=== PATIENT | female | born 1940 | race Caucasian/White ===

== ENCOUNTER 2016-06-13 13:30 | Outpatient (RCR) | payer MEDICARE, OTHER ==
--- OUTSIDE RECORDS SUMMARY | 2016-06-13 13:33 | XMS REPORT | Continuity of Care Document ---
Author Author [facility] Organization [facility] Address Unknown Phone Unavailable Care Team Providers Care Executive Communications Manager Name Role Phone SHARAN ANDREW Augustine ALCALA PCP Insurance Providers Payer Name Policy Number Subscriber Name Relationship [employer] [id number] Zhanna Stuart 18 Self / Same As Patient GEHA [id number] Zhanna Stuart 20 Self / Same As Patient Problems No problem information available. Medications No medication information available. Social History Social History Problem Response Recorded Date/Time Recent Foreign Travel N [place] 12/18/2015 9:51am Hospital Discharge Instructions No hospital discharge instructions. Plan of Care Prescriptions See Medication Section Functional Status No functional status results. Allergies, Adverse Reactions, Alerts No known allergies. Immunizations No immunization records. Vital Signs No known vital signs results. Results Laboratory Results Test Name Result Units Flags Reference Collection Date/Time Result Date/ Time Comments White Blood Count 9.0 10^3/uL 4.3-11.0 01/22/2016 10:39am 01/22/2016 10 :43am Red Blood Count 5.03 10^6/uL 4.35-5.85 01/22/2016 10:39am 01/22/2016 10 :43am Hemoglobin 13.5 G/DL 11.5-16.0 01/22/2016 10:39am 01/22/2016 10:43am Hematocrit 38 % 35-52 01/22/2016 10:39am 01/22/2016 10:43am Mean Corpuscular Volume 76 FL L 80-99 01/22/2016 10:39am 01/22/2016 10: 43am Mean Corpuscular Hemoglobin 27 PG 25-34 01/22/2016 10:39am 01/22/2016 10:43am Mean Corpuscular Hemoglobin Concent 35 G/DL 32-36 01/22/2016 10:39am 10:43am Red Cell Distribution Width 16.9 % H 10.0-14.5 01/22/2016 10:39am 2015 10:43am Platelet Count 397 10^3/uL 130-400 01/22/2016 10:39am 01/22/2016 10: 43am Mean Platelet Volume 8.1 FL 7.4-10.4 01/22/2016 10:39am 01/22/2016 10: 43am Neutrophils (%) (Auto) 66 % 42-75 01/22/2016 10:39am 01/22/2016 10: 43am Lymphocytes (%) (Auto) 20 % 12-44 01/22/2016 10:39am 01/22/2016 10: 43am Monocytes (%) (Auto) 13 % H 0-12 01/22/2016 10:39am 01/22/2016 10:43am Eosinophils (%) (Auto) 1 % 0-10 01/22/2016 10:39am 01/22/2016 10:43am Basophils (%) (Auto) 0 % 0-10 01/22/2016 10:39am 01/22/2016 10:43am Neutrophils # (Auto) 5.9 X 10^3 1.8-7.8 01/22/2016 10:39am 01/22/2016 10:43am Lymphocytes # (Auto) 1.8 X 10^3 1.0-4.0 01/22/2016 10:39am 01/22/2016 10:43am Monocytes # (Auto) 1.2 X 10^3 H 0.0-1.0 01/22/2016 10:39am 01/22/2016 10: 43am Eosinophils # (Auto) 0.1 10^3/uL 0.0-0.3 01/22/2016 10:39am 01/22/2016 10:43am Basophils # (Auto) 0.0 10^3/uL 0.0-0.1 01/22/2016 10:39am 01/22/2016 10 :43am Ferritin 934 ng/mL H 15-150 01/22/2016 10:39am 01/23/2016 8:46am Test performed at [facility], CLIA# [id number] Procedures No known history of procedures. Encounters Encounter Location Arrival/Admit Date Discharge/Depart Date Attending Provider Discharged Recurring [facility] 01/22/16 10:30am 11:59pm MARYSE FORTE
[2016-06-13 13:45] LABS: BASOPHILS % (AUTO) 0 % (0-10); EOSINOPHILS # (AUTO) 0.1 10^3/uL (0.0-0.3); EOSINOPHILS % (AUTO) 1 % (0-10); LYMPHOCYTES # (AUTO) 2.2 X 10^3 (1.0-4.0); LYMPHOCYTES % (AUTO) 29 % (12-44); MEAN CORPUSCULAR HEMOGLOBIN 29 PG (25-34); MEAN CORPUSCULAR HGB CONC 35 G/DL (32-36); MEAN CORPUSCULAR VOLUME 82 FL (80-99); MEAN PLATELET VOLUME 8.8 FL (7.4-10.4); MONOCYTES # (AUTO) 1.1 X 10^3 (0.0-1.0); MONOCYTES % (AUTO) 14 % (0-12); NEUTROPHILS # (AUTO) 4.3 X 10^3 (1.8-7.8); NEUTROPHILS % (AUTO) 56 % (42-75); PLATELET COUNT 358 10^3/uL (130-400); RED BLOOD COUNT 4.77 10^6/uL (4.35-5.85); RED CELL DISTRIBUTION WIDTH 12.9 % (10.0-14.5); WHITE BLOOD COUNT 7.8 10^3/uL (4.3-11.0)
[2016-06-13 14:30] LABS: ALANINE AMINOTRANSFERASE 16 U/L (0-55); ALBUMIN 3.9 G/DL (3.2-4.5); ANION GAP 10 MMOL/L (5-14); ASPARTATE AMINO TRANSFERASE 25 U/L (5-34); BILIRUBIN,TOTAL 0.3 MG/DL (0.1-1.0); BLOOD UREA NITROGEN 7 MG/DL (7-18); BUN/CREATININE RATIO 11; CALCIUM 9.2 MG/DL (8.5-10.1); CARBON DIOXIDE 28 MMOL/L (21-32); CHLORIDE 98 MMOL/L (98-107); CREATININE SERUM 0.63 MG/DL (0.60-1.30); GFR ESTIMATED > 60; GLUCOSE 96 MG/DL (70-105); POTASSIUM 3.4 MMOL/L (3.6-5.0); SODIUM 136 MMOL/L (135-145); TOTAL PROTEIN 6.4 G/DL (6.4-8.2)
== END 2016-09-11 | disposition home or self-care (01) ==
LOC: ONC 13:30
PROVIDERS: ATTEND Internal Medicine Hematology & Oncology
DX: D50.0 Iron deficiency anemia secondary to blood loss (chronic) (principal); K50.90 Crohn's disease, unspecified, without complications; Z79.899 Other long term (current) drug therapy
CPT/HCPCS: 36415; 80053; 82728; 85025; 99213

== ENCOUNTER 2017-01-09 09:40 | Outpatient (RCR) | payer MEDICARE, OTHER ==
[2016-12-12 14:05] LABS: MEAN CORPUSCULAR HEMOGLOBIN 28 PG (25-34); MEAN CORPUSCULAR VOLUME 79 FL (80-99); RED BLOOD COUNT 4.89 10^6/uL (4.35-5.85); WHITE BLOOD COUNT 8.7 10^3/uL (4.3-11.0)
[2016-12-12 14:06] LABS: BASOPHILS % (AUTO) 1 % (0-10); EOSINOPHILS # (AUTO) 0.1 10^3/uL (0.0-0.3); EOSINOPHILS % (AUTO) 2 % (0-10); LYMPHOCYTES # (AUTO) 2.2 X 10^3 (1.0-4.0); LYMPHOCYTES % (AUTO) 26 % (12-44); MEAN CORPUSCULAR HGB CONC 35 G/DL (32-36); MEAN PLATELET VOLUME 8.6 FL (7.4-10.4); MONOCYTES # (AUTO) 1.1 X 10^3 (0.0-1.0); MONOCYTES % (AUTO) 13 % (0-12); NEUTROPHILS # (AUTO) 5.2 X 10^3 (1.8-7.8); NEUTROPHILS % (AUTO) 59 % (42-75); PLATELET COUNT 390 10^3/uL (130-400); RED CELL DISTRIBUTION WIDTH 12.9 % (10.0-14.5)
[2016-12-12 14:58] LABS: ALANINE AMINOTRANSFERASE 22 U/L (0-55); ALBUMIN 3.9 G/DL (3.2-4.5); ANION GAP 10 MMOL/L (5-14); ASPARTATE AMINO TRANSFERASE 30 U/L (5-34); BILIRUBIN,TOTAL 0.4 MG/DL (0.1-1.0); BLOOD UREA NITROGEN 6 MG/DL (7-18); BUN/CREATININE RATIO 10; CALCIUM 8.9 MG/DL (8.5-10.1); CARBON DIOXIDE 29 MMOL/L (21-32); CHLORIDE 92 MMOL/L (98-107); CREATININE SERUM 0.63 MG/DL (0.60-1.30); GFR ESTIMATED > 60; GLUCOSE 99 MG/DL (70-105); POTASSIUM 3.1 MMOL/L (3.6-5.0); SODIUM 131 MMOL/L (135-145); TOTAL PROTEIN 6.4 G/DL (6.4-8.2)
[2016-12-12 17:20] LABS: MAGNESIUM 2.1 MG/DL (1.8-2.4)
[2017-01-09 10:46] LABS: ANION GAP 7 MMOL/L (5-14); BLOOD UREA NITROGEN 8 MG/DL (7-18); BUN/CREATININE RATIO 13; CALCIUM 9.1 MG/DL (8.5-10.1); CARBON DIOXIDE 32 MMOL/L (21-32); CHLORIDE 94 MMOL/L (98-107); CREATININE SERUM 0.61 MG/DL (0.60-1.30); GFR ESTIMATED > 60; GLUCOSE 100 MG/DL (70-105); POTASSIUM 3.6 MMOL/L (3.6-5.0); SODIUM 133 MMOL/L (135-145)
== END 2017-03-12 | disposition home or self-care (01) ==
LOC: ONC 09:40
PROVIDERS: ATTEND Internal Medicine Hematology & Oncology
DX: D50.0 Iron deficiency anemia secondary to blood loss (chronic) (principal); K50.90 Crohn's disease, unspecified, without complications; Z79.899 Other long term (current) drug therapy
CPT/HCPCS: 36415; 80048; 80053; 82728; 83735; 85025; 99213

== ENCOUNTER 2017-07-01 10:17 | Outpatient (RCR) | payer MEDICARE, OTHER ==
[2017-06-10 10:25] LABS: BASOPHILS # (AUTO) 0.1 10^3/uL (0.0-0.1); BASOPHILS % (AUTO) 1 % (0-10); EOSINOPHILS # (AUTO) 0.1 10^3/uL (0.0-0.3); EOSINOPHILS % (AUTO) 2 % (0-10); HEMATOCRIT 44 % (35-52); LYMPHOCYTES # (AUTO) 2.3 X 10^3 (1.0-4.0); LYMPHOCYTES % (AUTO) 28 % (12-44); MEAN CORPUSCULAR HEMOGLOBIN 27 PG (25-34); MEAN CORPUSCULAR HGB CONC 34 G/DL (32-36); MEAN CORPUSCULAR VOLUME 78 FL (80-99); MEAN PLATELET VOLUME 8.9 FL (7.4-10.4); MONOCYTES # (AUTO) 0.9 X 10^3 (0.0-1.0); MONOCYTES % (AUTO) 12 % (0-12); NEUTROPHILS # (AUTO) 4.7 X 10^3 (1.8-7.8); NEUTROPHILS % (AUTO) 58 % (42-75); PLATELET COUNT 400 10^3/uL (130-400); RED BLOOD COUNT 5.63 10^6/uL (4.35-5.85); RED CELL DISTRIBUTION WIDTH 13.9 % (10.0-14.5); WHITE BLOOD COUNT 8.1 10^3/uL (4.3-11.0)
[2017-06-10 10:52] LABS: ALANINE AMINOTRANSFERASE 14 U/L (0-55); ALBUMIN 4.2 GM/DL (3.2-4.5); ALKALINE PHOSPHATASE 111 U/L (40-136); BILIRUBIN,TOTAL 0.6 MG/DL (0.1-1.0); BUN/CREATININE RATIO 9; CALCIUM 9.7 MG/DL (8.5-10.1); CARBON DIOXIDE 30 MMOL/L (21-32); CHLORIDE 98 MMOL/L (98-107); CREATININE SERUM 0.67 MG/DL (0.60-1.30); GFR ESTIMATED > 60; GLUCOSE 96 MG/DL (70-105); POTASSIUM 3.4 MMOL/L (3.6-5.0); SODIUM 139 MMOL/L (135-145); TOTAL PROTEIN 7.7 GM/DL (6.4-8.2)
[~2017-07-01 10:17] MED LIST: FERRIC CARBOXYMALTOSE (CANCER) 750 MG in NS (IVPB) CANCER CENTER 250 ML IV SCH
== END 2017-09-08 | disposition home or self-care (01) ==
LOC: ONC 10:17
PROVIDERS: ATTEND Internal Medicine Hematology & Oncology
DX: D50.9 Iron deficiency anemia, unspecified (principal)
CPT/HCPCS: 36415; 80053; 82728; 85025; 96365; 99213

== ENCOUNTER 2017-12-23 09:57 | Outpatient (RCR) | payer MEDICARE, OTHER ==
[2017-12-16 10:36] LABS: BASOPHILS % (AUTO) 0 % (0-10); EOSINOPHILS # (AUTO) 0.1 10^3/uL (0.0-0.3); EOSINOPHILS % (AUTO) 1 % (0-10); HEMATOCRIT 40 % (35-52); HEMOGLOBIN 14.5 G/DL (11.5-16.0); LYMPHOCYTES # (AUTO) 2.5 X 10^3 (1.0-4.0); LYMPHOCYTES % (AUTO) 27 % (12-44); MEAN CORPUSCULAR HEMOGLOBIN 30 PG (25-34); MEAN CORPUSCULAR HGB CONC 37 G/DL (32-36); MEAN CORPUSCULAR VOLUME 82 FL (80-99); MEAN PLATELET VOLUME 8.6 FL (7.4-10.4); MONOCYTES % (AUTO) 11 % (0-12); NEUTROPHILS # (AUTO) 5.6 X 10^3 (1.8-7.8); NEUTROPHILS % (AUTO) 61 % (42-75); PLATELET COUNT 398 10^3/uL (130-400); RED BLOOD COUNT 4.85 10^6/uL (4.35-5.85); RED CELL DISTRIBUTION WIDTH 13.2 % (10.0-14.5); WHITE BLOOD COUNT 9.3 10^3/uL (4.3-11.0)
[2017-12-16 10:49] LABS: ALANINE AMINOTRANSFERASE 13 U/L (0-55); ALKALINE PHOSPHATASE 100 U/L (40-136); BILIRUBIN,TOTAL 0.5 MG/DL (0.1-1.0); BUN/CREATININE RATIO 7; CALCIUM 9.1 MG/DL (8.5-10.1); CARBON DIOXIDE 28 MMOL/L (21-32); CHLORIDE 94 MMOL/L (98-107); CREATININE SERUM 0.68 MG/DL (0.60-1.30); GFR ESTIMATED > 60; GLUCOSE 107 MG/DL (70-105); POTASSIUM 3.2 MMOL/L (3.6-5.0); SODIUM 131 MMOL/L (135-145); TOTAL PROTEIN 6.7 GM/DL (6.4-8.2)
== END 2018-03-16 | disposition home or self-care (01) ==
LOC: ONC 09:57
PROVIDERS: ATTEND Internal Medicine Hematology & Oncology
DX: D50.0 Iron deficiency anemia secondary to blood loss (chronic) (principal); K50.90 Crohn's disease, unspecified, without complications; Z79.899 Other long term (current) drug therapy
CPT/HCPCS: 36415; 80053; 82728; 85025; 99213

== ENCOUNTER 2018-07-16 22:22 | Inpatient (IN) | payer MEDICARE, OTHER ==
[~2018-07-16] VITALS: Ht 157.5 cm; Wt 39.5 kg
--- OUTSIDE RECORDS SUMMARY | 2018-07-16 22:28 | XMS REPORT | Continuity of Care Document ---
Author Author [facility] Address Unknown Phone Unavailable Allergies Active Description Code Type Severity Reaction Onset Reported/Identified Relationship to Patient Clinical Status Yes SULFA (sulfonamide) [id number] CLASS N/A N/A Yes SULFA (SULFONAMIDE ANTIBIOTICS) UNKNOWN DERMATOLOGICAL - OBDULIO Yes No Known Drug Allergies [id number] Drug Allergy Unknown N/A 09/17/2010 Medications Medication Packaging Start Date Stop Date Route Dosage Sig MECLIZINE TAB 25 MG (ANTIVERT) MG 06/06/2018 06/06/2018 PRN ONCE NORMAL SALINE W/KCL 40MEQ IV (SALINE IV BAG [id number]) MLS 06/06/2018 06/13/2018 CONTINUOUSEVERY 0 Hour NORMAL SALINE 1000CC IV BAG INJ 0.9 % (NS 1000CC IV BAG) ml 06/06/2018 06/06/2018 ONCE&1446 ONDANSETRON VIAL INJ 4 MG/2CC (ZOFRAN 2CC VIAL) MG 06/06/2018 06/13/2018 PRN Q4H CEFTRIAXONE PREMIX IV BAG IV 1 GM/50CC (ROCEPHIN PREMIX IV BAG) GM 06/06/2018 06/13/2018 Daily&0900 POTASSIUM CL 40MEQ VIAL INJ 40 MEQ/20CC (KCL VIAL) MEQ 06/06/2018 06/06/2018 ONCE&1851 NORMAL SALINE 1000CC IV BAG INJ 0.9 % (NS 1000CC IV BAG) ml 06/06/2018 06/21/2018 CONTINUOUSEVERY 0 Hour Flu vacc [id number] Persons 6mo T older(PF) IM syringe/vial(Fluarix QUAD) Adult ML 06/06/2018 06/06/2018 ONCE&2008 PNEUMONIA VACCINE INJ (PREVNAR-13) ml 06/06/2018 06/06/2018 ONCE&2008 SERTRALINE TAB 50 MG (ZOLOFT) MG 06/12/2018 Daily&0900 Dronabinol (MARINOL) 2.5mg capsule MG 06/06/2018 06/16/2018 BID&0900,2100 ALPRAZOLAM TAB 0.25 MG (XANAX) MG 06/06/2018 06/16/2018 PRN Q8H POTASSIUM CL 40MEQ VIAL INJ 40 MEQ/20CC (KCL VIAL) MEQ 06/06/2018 06/06/2018 ONCE&2200 MECLIZINE TAB 25 MG (ANTIVERT) MG 06/06/2018 06/13/2018 PRN Q8H Normal SALINE 0.9 % (NS 100cc) (plain bag) ml 06/06/2018 06/06/2018 ONCE&2200 POTASSIUM CHLORIDE TAB 20 MEQ (K-DUR) MEQ 06/07/2018 06/07/2018 ONCE&0835 AMLODIPINE TAB 5 MG (NORVASC) MG 06/13/2018 Daily&0900 POTASSIUM CHLORIDE TAB 20 MEQ (K-DUR) MEQ 06/07/2018 06/13/2018 Daily&0900 PANTOPRAZOLE TAB 40 MG (PROTONIX) MG 06/07/2018 06/13/2018 Daily&0900 Diltiazem extended release 180mg cap (CARDIZEM) MG 06/07/2018 06/16/2018 Daily&0900 Dronabinol (MARINOL) 2.5mg capsule MG 06/07/2018 06/17/2018 AC&0221,1021,1821 Dronabinol (MARINOL) 2.5mg capsule MG 06/07/2018 06/17/2018 TID&0630,1130,1630 Dronabinol (MARINOL) 2.5mg capsule MG 06/07/2018 06/17/2018 TID&0630,1130,1630 POTASSIUM CHLORIDE TAB 20 MEQ (K-DUR) MEQ 06/08/2018 06/08/2018 ONCE&0734 NORMAL SALINE 250CC IV BAG INJ 0.9 % (NS 250CC IV BAG) ml 06/08/2018 06/08/2018 ONCE&0734 MAGNESIUM SULFATE VIAL INJ 5 GM/10CC (MAG SULFATE 10CC VIAL) GM 06/08/2018 06/08/2018 ONCE&0828 NORMAL SALINE 250CC IV BAG INJ 0.9 % (NS 250CC IV BAG) ml 06/08/2018 06/08/2018 ONCE&0845 AMLODIPINE TAB 5 MG (NORVASC) MG 06/14/2018 Daily&0900 SPIRONOLACTONE TAB 25 MG (ALDACTONE) MG 06/08/2018 06/14/2018 Daily&0900 NORMAL SALINE 250CC IV BAG INJ 0.9 % (NS 250CC IV BAG) ml 06/08/2018 06/08/2018 ONCE&1017 POTASSIUM CHLORIDE TAB 20 MEQ (K-DUR) MEQ 06/08/2018 06/08/2018 ONCE&1626 POTASSIUM CL 40MEQ VIAL INJ 40 MEQ/20CC (KCL VIAL) MEQ 06/08/2018 06/08/2018 ONCE&1626 NORMAL SALINE 250CC IV BAG INJ 0.9 % (NS 250CC IV BAG) ml 06/08/2018 06/08/2018 ONCE&1626 MAGNESIUM SULFATE VIAL INJ 1 GM/2CC (MAG SULFATE 2CC VIAL) GM 06/09/2018 06/09/2018 ONCE&0751 Normal SALINE 0.9 % (NS 100cc) (plain bag) ml 06/09/2018 06/09/2018 ONCE&0819 MAGNESIUM SULFATE VIAL INJ 5 GM/10CC (MAG SULFATE 10CC VIAL) GM 06/09/2018 06/09/2018 ONCE&0846 Problems Date Dx Coded Attending Type Code Diagnosis Diagnosed By 02/02/2015 MARYSE FORTE Ot 280.0 02/02/2015 MARYSE FORTE Ot V58.69 03/22/2015 NATHANAEL LOPEZ MICA SIZER Ot 280.9 03/22/2015 NATHANAEL LOPEZ MICA SIZER Ot 789.06 03/22/2015 NATHANAEL LOPEZ MICA SIZER Ot V58.69 03/23/2015 NATHANAEL LOPEZ MICA SIZER Ot 280.0 03/23/2015 NATHANAEL LOPEZ MICA SIZER Ot 309.0 03/23/2015 NATHANAEL LOPEZ MICA SIZER Ot 555.9 03/23/2015 NATHANAEL LOPEZ MICA SIZER Ot V58.69 03/28/2015 NATHANAEL LOPEZ MICA SIZER Ot 280.9 03/28/2015 NATHANAEL LOPEZ MICA SIZER Ot 789.06 03/28/2015 NATHANAEL LOPEZ MICA SIZER Ot V58.69 04/03/2015 NATHANAEL LOPEZ MICA SIZER Ot 280.0 04/03/2015 NATHANAEL LOPEZ MICA SIZER Ot 309.0 04/03/2015 LOPEZNATHANAEL Shea MICA SIZER Ot 555.9 04/03/2015 NATHANAEL LOPEZ S MICA SIZER Ot V58.69 04/11/2015 REANNA, BOBAN N Ot 280.0 04/11/2015 REANNA, BOBAN N Ot V58.69 04/13/2015 LOPEZNATHANAEL Shea S MICA SIZER Ot 280.9 04/13/2015 LOPEZNATHANAEL Shea S MICA SIZER Ot 789.06 04/13/2015 LOPEZNATHANAEL Shea S MICA SIZER Ot V58.69 04/18/2015 LOPEZNATHANAEL Shea S MICA SIZER Ot 280.0 04/18/2015 LOPEZNATHANAEL Shea S MICA SIZER Ot 309.0 04/18/2015 NATHANAEL LOPEZ S MICA SIZER Ot 555.9 04/18/2015 LOPEZNATHANAEL Shea S MICA SIZER Ot V58.69 04/24/2015 REANNA, BOBAN N Ot 280.0 04/24/2015 REANNA, BOBAN N Ot V58.69 04/25/2015 REANNA, BOBAN N Ot 280.0 04/25/2015 REANNA, BOBAN N Ot V58.69 04/26/2015 REANNA, BOBAN N Ot 280.0 04/26/2015 REANNA, BOBAN N Ot 280.9 04/26/2015 REANNA, BOBAN N Ot D50.0 04/26/2015 REANNA, BOBAN N Ot V58.69 06/06/2015 REANNA, BOBAN N Ot 280.0 06/06/2015 REANNA, BOBAN N Ot V58.69 07/21/2015 REANNA, BOBAN N Ot 280.0 07/21/2015 REANNA, BOBAN N Ot V58.69 08/09/2015 REANNA, BOBAN N Ot D50.0 08/09/2015 REANNA, BOBAN N Ot K50.90 08/22/2015 REANNA, BOBAN N Ot D50.0 08/22/2015 REANNA, BOBAN N Ot K50.90 09/10/2015 REANNA, BOBAN N Ot D50.0 09/10/2015 REANNA, BOBAN N Ot K50.90 12/19/2015 REANNA, BOBAN N Ot D50.0 IRON DEFICIENCY ANEMIA SECONDARY TO BLOO 12/19/2015 MARYSE FORTE N Ot K50.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, UNSPECIFIED, WITHOUT CO 12/21/2015 LOPEZNATHANAEL Shea MICA SIZER Ot D50.0 IRON DEFICIENCY ANEMIA SECONDARY TO BLOO 12/21/2015 NATHANAEL LOPEZ MICA SIZER Ot K50.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, UNSPECIFIED, WITHOUT CO 12/21/2015 NATHAANEL LOPEZ MICA SIZER Ot R53.83 OTHER FATIGUE 12/21/2015 NATHANAEL LOPEZ MICA SIZER Ot Z79.899 OTHER CARE HOME (CURRENT) DRUG THERAPY 01/09/2016 NATHANAEL LOPEZ MICA SIZER Ot D50.0 IRON DEFICIENCY ANEMIA SECONDARY TO BLOO 01/09/2016 NATHANAEL LOPEZ MICA SIZER Ot K50.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, UNSPECIFIED, WITHOUT CO 01/09/2016 NATHANAEL LOPEZ MICA SIZER Ot R53.83 OTHER FATIGUE 01/09/2016 NATHANAEL LOPEZ MICA SIZER Ot Z79.899 OTHER CARE HOME (CURRENT) DRUG THERAPY 01/12/2016 NATHANAEL LOPEZ MICA SIZER Ot D50.0 IRON DEFICIENCY ANEMIA SECONDARY TO BLOO 01/12/2016 NATHANAEL LOPEZ MICA SIZER Ot K50.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, UNSPECIFIED, WITHOUT CO 01/12/2016 NATHANAEL LOPEZ MICA SIZER Ot R53.83 OTHER FATIGUE 01/12/2016 NATHANAEL LOPEZ MICA SIZER Ot Z79.899 OTHER WIRELESS WATCHER (CURRENT) DRUG THERAPY 02/01/2016 REANNAMARYSE N Ot D50.0 IRON DEFICIENCY ANEMIA SECONDARY TO BLOO 02/01/2016 REANNAMARYSE N Ot K50.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, UNSPECIFIED, WITHOUT CO 02/01/2016 REANNAMARYSE N Ot Z79.899 OTHER WIRELESS WATCHER (CURRENT) DRUG THERAPY 02/09/2016 REANNAMARYSE N Ot D50.0 IRON DEFICIENCY ANEMIA SECONDARY TO BLOO 02/09/2016 REANNAMARYSE N Ot K50.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, UNSPECIFIED, WITHOUT CO 02/09/2016 REANNAMARYSE ROSARIO N Ot Z79.899 OTHER CARE HOME (CURRENT) DRUG THERAPY 03/17/2016 MARYSE FORTE N Ot D50.0 IRON DEFICIENCY ANEMIA SECONDARY TO BLOO 03/17/2016 REANNA, BOBAN N Ot K50.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, UNSPECIFIED, WITHOUT CO 03/17/2016 REANNA, BOBAN N Ot Z79.899 OTHER CARE HOME (CURRENT) DRUG THERAPY 07/26/2016 REANNA, BOBAN N Ot D50.0 IRON DEFICIENCY ANEMIA SECONDARY TO BLOO 07/26/2016 REANNA, BOBAN N Ot K50.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, UNSPECIFIED, WITHOUT CO 07/26/2016 REANNA, BOBAN N Ot Z79.899 OTHER CARE HOME (CURRENT) DRUG THERAPY 08/06/2016 REANNA, BOBAN N Ot D50.0 IRON DEFICIENCY ANEMIA SECONDARY TO BLOO 08/06/2016 REANNA, BOBAN N Ot K50.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, UNSPECIFIED, WITHOUT CO 08/06/2016 REANNA, BOBAN N Ot Z79.899 OTHER WIRELESS WATCHER (CURRENT) DRUG THERAPY 09/11/2016 REANNA, BOBAN N Ot D50.0 IRON DEFICIENCY ANEMIA SECONDARY TO BLOO 09/11/2016 REANNA, BOBAN N Ot K50.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, UNSPECIFIED, WITHOUT CO 09/11/2016 REANNA, BOBAN N Ot Z79.899 OTHER CARE HOME (CURRENT) DRUG THERAPY 09/12/2016 REANNA, BOBAN N Ot D50.0 IRON DEFICIENCY ANEMIA SECONDARY TO BLOO 09/12/2016 REANNA, BOBAN N Ot K50.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, UNSPECIFIED, WITHOUT CO 09/12/2016 REANNA, BOBAN N Ot Z79.899 OTHER CARE HOME (CURRENT) DRUG THERAPY 12/13/2016 REANNA, BOBAN N Ot D50.0 IRON DEFICIENCY ANEMIA SECONDARY TO BLOO 12/13/2016 REANNA, BOBAN N Ot K50.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, UNSPECIFIED, WITHOUT CO 12/13/2016 REANNA, BOBAN N Ot Z79.899 OTHER WIRELESS WATCHER (CURRENT) DRUG THERAPY 01/23/2017 REANNA, BOBAN N Ot D50.0 IRON DEFICIENCY ANEMIA SECONDARY TO BLOO 01/23/2017 REANNA, BOBAN N Ot K50.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, UNSPECIFIED, WITHOUT CO 01/23/2017 REANNA, BOBAN N Ot Z79.899 OTHER CARE HOME (CURRENT) DRUG THERAPY 03/12/2017 REANNA, BOBAN N Ot D50.0 IRON DEFICIENCY ANEMIA SECONDARY TO BLOO 03/12/2017 REANNA, BOBMONSERRAT N Ot K50.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, UNSPECIFIED, WITHOUT CO 03/12/2017 REANNA, BOBMONSERRAT N Ot Z79.899 OTHER CARE HOME (CURRENT) DRUG THERAPY 06/11/2017 REANNA, MARYSE N Ot D50.9 IRON DEFICIENCY ANEMIA, UNSPECIFIED 07/29/2017 REANNA, BOBMONSERRAT N Ot D50.9 IRON DEFICIENCY ANEMIA, UNSPECIFIED 08/07/2017 REANNA, BOBAN N Ot D50.9 IRON DEFICIENCY ANEMIA, UNSPECIFIED 09/08/2017 REANNA, BOBAN N Ot D50.9 IRON DEFICIENCY ANEMIA, UNSPECIFIED 09/09/2017 REANNA, BOBMONSERRAT N Ot D50.9 IRON DEFICIENCY ANEMIA, UNSPECIFIED 12/17/2017 REANNA, BOBMONSERRAT N Ot D50.9 IRON DEFICIENCY ANEMIA, UNSPECIFIED 01/16/2018 REANNA, BOBAN N Ot D50.0 IRON DEFICIENCY ANEMIA SECONDARY TO BLOO 01/16/2018 REANNA, BOBMONSERRAT N Ot K50.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, UNSPECIFIED, WITHOUT CO 01/16/2018 REANNA, MARYSE N Ot Z79.899 OTHER CARE HOME (CURRENT) DRUG THERAPY 01/30/2018 REANNA, MARYSE N Ot D50.0 IRON DEFICIENCY ANEMIA SECONDARY TO BLOO 01/30/2018 REANNA, BOBAN N Ot K50.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, UNSPECIFIED, WITHOUT CO 01/30/2018 REANNA, BOBMONSERRAT N Ot Z79.899 OTHER WIRELESS WATCHER (CURRENT) DRUG THERAPY 06/06/2018 Calabrese, Anabel-Sheri W 276.1 HYPOSMOLALITY AND/OR HYPONATREMIA 06/06/2018 Calabrese, Anabel-Sheri W 276.8 HYPOPOTASSEMIA 06/06/2018 Calabrese, Anabel-Sheri W E87.1 HYPO-OSMOLALITY AND HYPONATREMIA 06/06/2018 Calabrese, Anabel-Sheri W E87.6 HYPOKALEMIA 06/06/2018 Calabrese, Anabel-Sheri W 276.1 HYPOSMOLALITY AND/OR HYPONATREMIA 06/06/2018 Calabrese, Anabel-Sheri W 276.8 HYPOPOTASSEMIA 06/06/2018 Calabrese, Anabel-Sheri W 599.0 URINARY TRACT INFECTION, SITE NOT SPECIFIED 06/06/2018 Calabrese, Anabel-Sheri W E87.1 HYPO-OSMOLALITY AND HYPONATREMIA 06/06/2018 Calabrese, Anabel-Sheri W E87.6 HYPOKALEMIA 06/06/2018 Calabrese, Anabel-Sheri W N39.0 URINARY TRACT INFECTION, SITE NOT SPECIFIED 06/06/2018 Calabrese, Anabel-Sheri W 276.1 HYPOSMOLALITY AND/OR HYPONATREMIA 06/06/2018 Calabrese, Anabel-Sheri W 276.8 HYPOPOTASSEMIA 06/06/2018 Calabrese, Anabel-Sheri W 386.2 VERTIGO OF CENTRAL ORIGIN 06/06/2018 Calabrese, Anabel-Sheri W 599.0 URINARY TRACT INFECTION, SITE NOT SPECIFIED 06/06/2018 Calabrese, Anabel-Sheri W E87.1 HYPO-OSMOLALITY AND HYPONATREMIA 06/06/2018 Calabrese, Anabel-Sheri W E87.6 HYPOKALEMIA 06/06/2018 Calabrese, Anabel-Sheri W H81.49 VERTIGO OF CENTRAL ORIGIN, UNSPECIFIED EAR 06/06/2018 Calabrese, Anabel-Sheri W N39.0 URINARY TRACT INFECTION, SITE NOT SPECIFIED 06/06/2018 Calabrese, Anabel-Sheri W 276.1 HYPOSMOLALITY AND/OR HYPONATREMIA 06/06/2018 Calabrese, Anabel-Sheri W 276.8 HYPOPOTASSEMIA 06/06/2018 Calabrese, Anabel-Sheri W 386.2 VERTIGO OF CENTRAL ORIGIN 06/06/2018 Calabrese, Anabel-Sheri W 555.9 REGIONAL ENTERITIS OF UNSPECIFIED SITE 06/06/2018 Calabrese, Anabel-Sheri W 599.0 URINARY TRACT INFECTION, SITE NOT SPECIFIED 06/06/2018 Calabrese, Anabel-Sheri W E87.1 HYPO-OSMOLALITY AND HYPONATREMIA 06/06/2018 Calabrese, Anabel-Sheri W E87.6 HYPOKALEMIA 06/06/2018 Calabrese, Anabel-Sheri W H81.49 VERTIGO OF CENTRAL ORIGIN, UNSPECIFIED EAR 06/06/2018 Calabrese, Anabel-Sheri W K50.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, UNSPECIFIED, WITHOUT COMPLICATIONS 06/06/2018 Calabrese, Anabel-Sheri W N39.0 URINARY TRACT INFECTION, SITE NOT SPECIFIED 06/06/2018 Calabrese, Anabel-Sheri W 276.1 HYPOSMOLALITY AND/OR HYPONATREMIA 06/06/2018 Calabrese, Anabel-Sheri W 276.8 HYPOPOTASSEMIA 06/06/2018 Calabrese, Anabel-Sheri W 386.2 VERTIGO OF CENTRAL ORIGIN 06/06/2018 Calabrese, Anabel-Sheri W 555.9 REGIONAL ENTERITIS OF UNSPECIFIED SITE 06/06/2018 Calabrese, Anabel-Sheri W 599.0 URINARY TRACT INFECTION, SITE NOT SPECIFIED 06/06/2018 Calabrese, Anabel-Sheri W E87.1 HYPO-OSMOLALITY AND HYPONATREMIA 06/06/2018 Calabrese, Anabel-Sheri W E87.6 HYPOKALEMIA 06/06/2018 Calabrese, Anabel-Sheri W H81.49 VERTIGO OF CENTRAL ORIGIN, UNSPECIFIED EAR 06/06/2018 Calabrese, Anabel-Sheri W K50.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, UNSPECIFIED, WITHOUT COMPLICATIONS 06/06/2018 Calabrese, Anabel-Sheri W N39.0 URINARY TRACT INFECTION, SITE NOT SPECIFIED 06/07/2018 Calabrese, Anabel-Sheri W 276.1 HYPOSMOLALITY AND/OR HYPONATREMIA 06/07/2018 Calabrese, Anabel-Sheri W 276.8 HYPOPOTASSEMIA 06/07/2018 Calabrese, Anabel-Sheri W 386.2 VERTIGO OF CENTRAL ORIGIN 06/07/2018 Calabrese, Anabel-Sheri W 555.9 REGIONAL ENTERITIS OF UNSPECIFIED SITE 06/07/2018 Calabrese, Anabel-Sheri W 599.0 URINARY TRACT INFECTION, SITE NOT SPECIFIED 06/07/2018 Calabrese, Anabel-Sheri W E87.1 HYPO-OSMOLALITY AND HYPONATREMIA 06/07/2018 Calabrese, Anabel-Sheri W E87.6 HYPOKALEMIA 06/07/2018 Calabrese, Anabel-Sheri W H81.49 VERTIGO OF CENTRAL ORIGIN, UNSPECIFIED EAR 06/07/2018 Calabrese, Anabel-Sheri W K50.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, UNSPECIFIED, WITHOUT COMPLICATIONS 06/07/2018 Calabrese, Anabel-Sheri W N39.0 URINARY TRACT INFECTION, SITE NOT SPECIFIED 06/07/2018 Calabrese, Anabel-Sheri W 276.1 HYPOSMOLALITY AND/OR HYPONATREMIA 06/07/2018 Calabrese, Anabel-Sheri W 276.8 HYPOPOTASSEMIA 06/07/2018 Calabrese, Anabel-Sheri W 386.2 VERTIGO OF CENTRAL ORIGIN 06/07/2018 Calabrese, Anabel-Sheri W 555.9 REGIONAL ENTERITIS OF UNSPECIFIED SITE 06/07/2018 Calabrese, Anabel-Sheri W 599.0 URINARY TRACT INFECTION, SITE NOT SPECIFIED 06/07/2018 Calabrese, Anabel-Sheri W E87.1 HYPO-OSMOLALITY AND HYPONATREMIA 06/07/2018 Calabrese, Anabel-Sheri W E87.6 HYPOKALEMIA 06/07/2018 Calabrese, Anabel-Sheri W H81.49 VERTIGO OF CENTRAL ORIGIN, UNSPECIFIED EAR 06/07/2018 Calabrese, Anabel-Sheri W K50.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, UNSPECIFIED, WITHOUT COMPLICATIONS 06/07/2018 Calabrese, Anabel-Sheri W N39.0 URINARY TRACT INFECTION, SITE NOT SPECIFIED 06/07/2018 Calabrese, Anabel-Sheri W 276.1 HYPOSMOLALITY AND/OR HYPONATREMIA 06/07/2018 Calabrese, Anabel-Sheri W 276.8 HYPOPOTASSEMIA 06/07/2018 Calabrese, Anabel-Sheri W 386.11 06/07/2018 Calabrese, Anabel-Sheri W 386.2 VERTIGO OF CENTRAL ORIGIN 06/07/2018 Calabrese, Anabel-Sheri W 555.9 06/07/2018 Calabrese, Anabel-Sheri W 599.0 URINARY TRACT INFECTION, SITE NOT SPECIFIED 06/07/2018 Calabrese, Anabel-Sheri W E87.1 HYPO-OSMOLALITY AND HYPONATREMIA 06/07/2018 Calabrese, Anabel-Sheri W E87.6 HYPOKALEMIA 06/07/2018 Calabrese, Anabel-Sheri W H81.11 BENIGN PAROXYSMAL VERTIGO, RIGHT EAR 06/07/2018 Calabrese, Anabel-Sheri W H81.49 VERTIGO OF CENTRAL ORIGIN, UNSPECIFIED EAR 06/07/2018 Calabrese, Anabel-Sheri W K50.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, UNSPECIFIED, WITHOUT COMPLICATIONS 06/07/2018 Calabrese, Anabel-Sheri W N39.0 URINARY TRACT INFECTION, SITE NOT SPECIFIED 06/07/2018 Calabrese, Anabel-Sheri W 276.1 HYPOSMOLALITY AND/OR HYPONATREMIA 06/07/2018 Calabrese, Anabel-Sheri W 276.8 HYPOPOTASSEMIA 06/07/2018 Calabrese, Anabel-Sheri W 386.11 06/07/2018 Calabrese, Anabel-Sheri W 386.2 VERTIGO OF CENTRAL ORIGIN 06/07/2018 Calabrese, Anabel-Sheri W 555.9 06/07/2018 Calabrese, Anabel-Sheri W 599.0 URINARY TRACT INFECTION, SITE NOT SPECIFIED 06/07/2018 Calabrese, Anabel-Sheri W E87.1 HYPO-OSMOLALITY AND HYPONATREMIA 06/07/2018 Calabrese, Anabel-Sheri W E87.6 HYPOKALEMIA 06/07/2018 Calabrese, Anabel-Sheri W H81.11 BENIGN PAROXYSMAL VERTIGO, RIGHT EAR 06/07/2018 Calabrese, Anabel-Sheri W H81.49 VERTIGO OF CENTRAL ORIGIN, UNSPECIFIED EAR 06/07/2018 Calabrese, Anabel-Sheri W K50.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, UNSPECIFIED, WITHOUT COMPLICATIONS 06/07/2018 Calabrese, Anabel-Sheri W N39.0 URINARY TRACT INFECTION, SITE NOT SPECIFIED 06/07/2018 Calabrese, Anabel-Sheri W 276.1 HYPOSMOLALITY AND/OR HYPONATREMIA 06/07/2018 Calabrese, Anabel-Sheri W 276.8 HYPOPOTASSEMIA 06/07/2018 Calabrese, Anabel-Sheri W 386.11 06/07/2018 Calabrese, Anabel-Sheri W 386.2 VERTIGO OF CENTRAL ORIGIN 06/07/2018 Calabrese, Anabel-Sheri W 555.9 06/07/2018 Calabrese, Anabel-Sheri W 599.0 URINARY TRACT INFECTION, SITE NOT SPECIFIED 06/07/2018 Calabrese, Anabel-Sheri W E87.1 HYPO-OSMOLALITY AND HYPONATREMIA 06/07/2018 Calabrese, Anabel-Sheri W E87.6 HYPOKALEMIA 06/07/2018 Calabrese, Anabel-Sheri W H81.11 BENIGN PAROXYSMAL VERTIGO, RIGHT EAR 06/07/2018 Calabrese, Anabel-Sheri W H81.49 VERTIGO OF CENTRAL ORIGIN, UNSPECIFIED EAR 06/07/2018 Calabrese, Anabel-Sheri W K50.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, UNSPECIFIED, WITHOUT COMPLICATIONS 06/07/2018 Calabrese, Anabel-Sheri W N39.0 URINARY TRACT INFECTION, SITE NOT SPECIFIED 06/08/2018 Calabrese, Anabel-Sheri W 275.2 06/08/2018 Calabrese, Anabel-Sheri W 276.1 HYPOSMOLALITY AND/OR HYPONATREMIA 06/08/2018 Calabrese, Anabel-Sheri W 276.8 HYPOPOTASSEMIA 06/08/2018 Calabrese, Anabel-Sheri W 386.11 06/08/2018 Calabrese, Anabel-Sheri W 386.2 06/08/2018 Calabrese, Anabel-Sheri W 555.9 06/08/2018 Calabrese, Anabel-Sheri W 599.0 URINARY TRACT INFECTION, SITE NOT SPECIFIED 06/08/2018 Calabrese, Anabel-Sheri W E83.42 HYPOMAGNESEMIA 06/08/2018 Calabrese, Anabel-Sheri W E87.1 HYPO-OSMOLALITY AND HYPONATREMIA 06/08/2018, Anabel-Sheri W E87.6 HYPOKALEMIA 06/08/2018 Calabrese, Anabel-Sheri W H81.11 BENIGN PAROXYSMAL VERTIGO, RIGHT EAR 06/08/2018, Anabel-Sheri W H81.49 VERTIGO OF CENTRAL ORIGIN, UNSPECIFIED EAR 06/08/2018 Calabrese, Anabel-Sheri W K50.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, UNSPECIFIED, WITHOUT COMPLICATIONS 06/08/2018 Calabrese, Anabel-Sheri W N39.0 URINARY TRACT INFECTION, SITE NOT SPECIFIED 06/09/2018 Calabrese, Anabel-Sheri W 275.2 06/09/2018 Calabrese, Anabel-Sheri W 276.1 HYPOSMOLALITY AND/OR HYPONATREMIA 06/09/2018 Calabrese, Anabel-Sheri W 276.8 HYPOPOTASSEMIA 06/09/2018 Calabrese, Anabel-Sheri W 386.11 06/09/2018 Calabrese, Anabel-Sheri W 386.2 06/09/2018 Calabrese, Anabel-Sheri W 555.9 06/09/2018 Calabrese, Anabel-Sheri W 599.0 URINARY TRACT INFECTION, SITE NOT SPECIFIED 06/09/2018 Calabrese, Anabel-Sheri W E83.42 HYPOMAGNESEMIA 06/09/2018 Calabrese, Anabel-Sheri W E87.1 HYPO-OSMOLALITY AND HYPONATREMIA 06/09/2018 Calabrese, Anabel-Sheri W E87.6 HYPOKALEMIA 06/09/2018 Radhika Calabrese H81.11 BENIGN PAROXYSMAL VERTIGO, RIGHT EAR 06/09/2018 Radhika Calabrese H81.49 VERTIGO OF CENTRAL ORIGIN, UNSPECIFIED EAR 06/09/2018 Radhika Calabrese K50.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, UNSPECIFIED, WITHOUT COMPLICATIONS 06/09/2018 Radhika Calabrese N39.0 URINARY TRACT INFECTION, SITE NOT SPECIFIED Procedures There is no data. Results Test Result Range PTT - 06/06/18 13:09 PTT 28.9 Sec 26.0-38.0 Ferritin - 06/06/18 13:09 Ferritin 314.52 ng/mL 4.63-204.00 Urinalysis - 06/06/18 14:14 Icotest N/A Negative Urine Volume Urine Volume Sufficient (10mL) Urine Yeast No Yeast present Urine-Appearance Slightly Cloudy Clear Urine-Bacteria 4+ Urine-Bilirubin Negative Negative Urine-Blood 1+ Negative Urine-Color Yellow Colorless-Lt. Yellow Urine-Epithelial Cells RARE Urine-Glucose Negative Negative Urine-Ketones 2+ Negative Urine-Leukocytes Negative Negative Urine-Nitrite Positive Negative Urine-Other Culture to follow Urine-pH 7.0 5-8.5 Urine-Protein Negative Negative Urine-RBC Rare/HPF Urine-Specific [place] 1.015 1.000-1.030 Urine-WBC 5-10/HPF Urobilinogen 0.2 E.U./dL 0.2-1.0 Urine Culture - 06/06/18 14:14 PRELIM CULTURE RESULTS >100,000 Gram Negative ISAK / ID to Follow CULTURE SOURCE URINE CULTURE Sensi - 06/06/18 14:14 FINAL CULTURE RESULTS Escherichia coli (Isolate 1) Ampicillin/Sulbactam <=8/4 Ampicillin <=8 Amoxicillin/K Clavulanate <=8/4 Ceftriaxone <=8 Ciprofloxacin <=1 Nitrofurantoin <=32 Gentamicin <=4 Levofloxacin <=2 Trimethoprim/ Sulfamethoxazole <=2/38 Tetracycline <=4 Amikacin <=16 Aztreonam <=8 Ceftazidime <=1 Ceftazidime/K Clavulanate <=0.25 Cephalothin <=8 Cefotaxime <=2 Cefotaxime/K Clavulanate <=0.5 Cefoxitin <=8 Cefazolin <=8 Cefepime <=8 Cefuroxime <=4 Ertapenem <=1 Imipenem <=4 Meropenem <=4 Piperacillin/Tazobactam <=16 Piperacillin <=16 Tigecycline <=2 Tobramycin <=4 Magnesium - 06/07/18 05:05 Mg++ 1.8 mg/dL 1.6-2.6 Renin Activity and Aldosterone - 06/08/18 05:01 Renin Activity, Plasma 0.525 ng/mL/hr 0.167-5.380 Aldosterone 1.3 ng/dL 0.0-30.0 Magnesium - 06/08/18 05:01 Mg++ 1.4 mg/dL 1.6-2.6 BMP - 06/08/18 14:53 Anion Gap 11 6-14 BUN 2 mg/dL 5-25 Calcium 8.3 mg/dL 8.3-10.4 Chloride 98 mmol/L 95-114 CO2 24 mEq/L 22-33 Creat 0.51 mg/dL 0.50-1.50 eGFR 117 mL/min/1.73m2 >59 Glucose 104 mg/dL 70-110 Osmo 266 280-295 Potassium 2.9 mmol/L 3.5-5.3 Sodium 130 mmol/L 134-148 Magnesium - 06/09/18 05:20 Mg++ 1.5 mg/dL 1.6-2.6 Magnesium - 06/12/18 08:57 Mg++ 1.6 mg/dL 1.6-2.6 Comprehensive Metabolic Panel - 06/23/18 09:28 Albumin 4.0 g/dL 3.6-5.1 ALP 100 U/L 35-130 ALT 25 U/L 6-45 Anion Gap 17 6-14 AST 44 U/L 2-40 BUN 13 mg/dL 5-25 Calcium 10.2 mg/dL 8.3-10.4 Chloride 81 mmol/L 95-114 CO2 23 mEq/L 22-33 Creat 0.88 mg/dL 0.50-1.50 eGFR 62 mL/min/1.73m2 >59 Globulin 3.2 g/dL 2.3-3.5 Glucose 115 mg/dL 70-110 Osmo 244 280-295 Potassium 4.3 mmol/L 3.5-5.3 Sodium 117 Result Verified by Repeat Analysis mmol/L 134- 148 TBil 0.7 mg/dL 0.2-1.2 TP 7.2 g/dL 6.0-8.3 Encounters ACCT No. Visit Date/Time Discharge Status Pt. Type Provider Facility Loc./Unit Complaint [id number] 06/16/2018 14:45:12 06/16/2018 23:59:59 CLS Outpatient Robin Poon V [id number] 06/11/2018 15:25:00 Document Registration [id number] 06/29/2018 10:53:38 Document Registration [id number] 06/29/2018 10:49:36 Document Registration [id number] 12/23/2017 09:57:00 12/23/2017 23:59:59 CLS Outpatient MARYSE FORTE [facility] ONC [id number] 07/01/2017 10:17:00 09/08/2017 00:01:00 DIS Outpatient MARYSE FORTE [facility] ONC [id number] 01/09/2017 09:40:00 03/12/2017 00:01:00 DIS Outpatient MARYSE FORTE [facility] ONC [id number] 06/13/2016 13:30:00 09/11/2016 00:01:00 DIS Outpatient MARYSE FORTE [facility] ONC [id number] 01/22/2016 10:30:00 03/17/2016 00:01:00 DIS Outpatient MARYSE FORTE [facility] ONC [id number] 12/12/2015 14:34:00 12/12/2015 23:59:59 CLS Outpatient NATHANAEL LOPEZ [facility] ONC [id number] 06/12/2015 14:38:00 06/12/2015 23:59:59 CLS Outpatient MARYSE FORTE [facility] ONC [id number] 02/02/2015 09:27:00 04/26/2015 00:01:00 DIS Outpatient MARYSE FORTE [facility] ONC [id number] 03/10/2015 09:52:00 03/10/2015 23:59:59 CLS Outpatient NATHANAEL LOPEZ [facility] ONC [id number] 01/26/2015 09:21:00 01/26/2015 23:59:59 CLS Outpatient YESSY LOPEZINGE Shabbir POMPA [facility] ONC [id number] 01/21/2013 14:34:00 01/21/2013 23:59:59 CLS Outpatient [id number] 07/16/2018 22:23:00 ACT Emergency KAE PETE MD [facility] ER DEHYDRATED,LETHARGIC [id number] 06/23/2018 09:23:00 06/23/2018 23:59:00 DIS Outpatient Robin Poon [id number] 06/12/2018 08:55:00 06/12/2018 23:59:00 DIS Outpatient Radhika Calabrese [id number] 06/06/2018 15:06:00 06/09/2018 12:10:00 DIS Inpatient Radhika Calabrese [facility] MED-SURG [id number] 06/06/2018 14:12:49 Document Registration
[2018-07-16] MEDS ORDERED: NS IV 1000 ML 1,000 ML IV SCH (22:34)
--- NOTE | 2018-07-16 22:41 | ED General ---
General Chief Complaint: Unresponsive Stated Complaint: DEHYDRATED,LETHARGIC Nursing Triage Note: patient carried in for lethargy and dehydration. Nursing Sepsis Screen: No Definite Risk Source of Information: Patient, Family Exam Limitations: Other (clinical condition) History of Present Illness Date Seen by Provider: Jul 16, 2018 Time Seen by Provider: 22:25 Initial Comments patient presents to ER by private conveyance in the back of her car laying down complaining of nausea. She says she's been nauseated vomiting and diarrhea for the past several weeks. Twice in the last months she's been to the ER once to [place] where she was given fluids and workup and encouraged to go into behavioral health to help her with her chronic depression decreased appetite. She has a history of Crohn's disease. She was seen at [facility] and they started a workup saw nodule on her chest but then she went home AGAINST MEDICAL ADVICE before the complete her workup. Today the family brings her in because she continues to get weaker sicker and they say that her decline started about 4 years ago after her son committed suicide. Other than her history of Crohn's disease and iron deficiency anemia for which she is followed by Dr. Rhodes she has high blood pressure. She is followed by Dr. TSANG in [place]. She's not been taking her medications routinely nor any fluids for the past couple days. Return she does take fluids she vomits them back up immediately. She has been refusing any medical workup until she got so sick and weak her daughters drug her to the ER. The recalls that on her visit to the ER in [place] a nodules noted in one of her lung bases and it was recommended she follow up outpatient for a CT scan when she was feeling better. She has not made follow-up plans for this yet. Allergies and Home Medications Allergies Coded Allergies: No Known Drug Allergies (Unverified , 09/17/10) Patient Home Medication List Home Medication List Reviewed: Yes Review of Systems Review of Systems Constitutional: No chills, No diaphoresis; dizziness, malaise, weakness EENTM: No ear discharge, No ear pain Respiratory: No cough, No short of breath Cardiovascular: No chest pain, No Hx of Intervention, No palpitations, No vascular heart diseas Gastrointestinal: abdominal pain (diffuse tenderness); No constipation; diarrhea; No heartburn; nausea, vomiting Genitourinary: No discharge, No dysuria Musculoskeletal: No back pain, No joint pain Skin: No pruritus, No rash Past Bpjnrch-Stuoeu-Euxbdz Hx Patient Social History Alcohol Use: Denies Use Recreational Drug Use: No Smoking Status: Never a Smoker 2nd Hand Smoke Exposure: No Recent Foreign Travel: No Contact w/Someone Who Travel: No Recent Infectious Disease Expo: No Recent Hopitalizations: No Seasonal Allergies Seasonal Allergies: No Past Medical History Surgeries: Yes Appendectomy Respiratory: No Cardiac: Yes Hypertension Neurological: No Genitourinary: No Gastrointestinal: Yes Crohns Disease Musculoskeletal: No Endocrine: No HEENT: No Cancer: No Psychosocial: No Integumentary: No Blood Disorders: Yes Physical Exam-Suspected Sepsis Physical Exam Vital Signs Vital Signs - First Documented 07/16/18 07/17/18 22:23 00:00 Pulse 100 Resp 18 B/P (MAP) 124/87 (99) Pulse Ox 98 O2 Delivery Room Air Capillary Refill : Less Than 3 Seconds Blood Pressure Mean: 99 Height, Weight, BMI Height: 5'2.00" Weight: 75lbs. 0oz. [id number]; BMI Method:Stated General Appearance: Chronically ill, Cachetic, Moderate Distress Eyes: Bilateral Eye Normal Inspection, Bilateral Eye PERRL, Bilateral Eye EOMI HEENT: PERRL/EOMI, TMs Normal; No Moist Mucous Membranes Neck: Full Range of Motion, Normal Inspection, Non Tender Respiratory: Chest Non Tender, Lungs Clear, Normal Breath Sounds, No Accessory Muscle Use, No Respiratory Distress Cardiovascular: Regular Rate, Rhythm, No Edema, Normal Peripheral Pulses Gastrointestinal: Normal Bowel Sounds, Soft; No Guarding; Tenderness (mild, diffuse) Extremity: Normal Capillary Refill, Non Tender, No Calf Tenderness, No Pedal Edema Neurologic/Psychiatric: Alert, Oriented x3, No Motor/Sensory Deficits, Normal Mood/Affect, global project manager II-XII Norm as Tested, Other Skin: normal color, warm/dry, other (dry scaling skin) Lymphatic: No Adenopathy Focused Exam Lactate Level 07/16/18 22:45: Lactic Acid Level 2.92*H 07/17/18 00:50: Lactic Acid Level 2.25*H Lactic Acid Level Laboratory Tests Test 07/16/18 22:45 07/17/18 00:50 Lactic Acid Level 2.92 MMOL/L (0.50-2.00) *H 2.25 MMOL/L (0.50-2.00) *H Progress/Results/Core Measures Suspected Sepsis Recent Fever Within 48 Hours: No Infection Criteria Present: None New/Unexplained Altered Menta: Yes Sepsis Screen: No Definite Risk SIRS Temperature: Pulse: 100 Respiratory Rate: 18 Laboratory Tests 07/16/18 22:30: White Blood Count 11.3H Blood Pressure 124 /87 Mean: 99 07/16/18 22:45: Lactic Acid Level 2.92*H 07/17/18 00:50: Lactic Acid Level 2.25*H Laboratory Tests 07/16/18 22:30: Creatinine 0.89, INR Comment 1.4, Platelet Count 506H, Total Bilirubin 1.1H Results/Orders Lab Results Laboratory Tests Test 07/16/18 22:30 07/16/18 22:31 07/16/18 22:45 07/17/18 00:50 Range/Units White Blood Count 11.3 H 4.3-11.0 10^3/uL Red Blood Count 6.13 H 4.35-5.85 10^6/uL Hemoglobin 16.9 H 11.5-16.0 G/DL Hematocrit 47 35-52 % Mean Corpuscular Volume 77 L 80-99 FL Mean Corpuscular Hemoglobin 28 25-34 PG Mean Corpuscular Hemoglobin Concent 36 32-36 G/DL Red Cell Distribution Width 14.4 10.0-14.5 % Platelet Count 506 H 130-400 10^3/uL Mean Platelet Volume 8.4 7.4-10.4 FL Neutrophils (%) (Auto) 84 H 42-75 % Lymphocytes (%) (Auto) 9 L 12-44 % Monocytes (%) (Auto) 7 0-12 % Eosinophils (%) (Auto) 0 0-10 % Basophils (%) (Auto) 0 0-10 % Neutrophils # (Auto) 9.5 H 1.8-7.8 X 10^3 Lymphocytes # (Auto) 1.0 1.0-4.0 X 10^3 Monocytes # (Auto) 0.8 0.0-1.0 X 10^3 Eosinophils # (Auto) 0.0 0.0-0.3 10^3/uL Basophils # (Auto) 0.0 0.0-0.1 10^3/uL Prothrombin Time 16.7 H 12.2-14.7 SEC INR Comment 1.4 0.8-1.4 Activated Partial Thromboplast Time 36 H 24-35 SEC Sodium Level 125 *L 135-145 MMOL/L Potassium Level 3.3 L 3.6-5.0 MMOL/L Chloride Level 87 L 98-107 MMOL/L Carbon Dioxide Level 20 L 21-32 MMOL/L Anion Gap 18 H 5-14 MMOL/L Blood Urea Nitrogen 22 H 7-18 MG/DL Creatinine 0.89 0.60-1.30 MG/DL Estimat Glomerular Filtration Rate > 60 BUN/Creatinine Ratio 25 Glucose Level 117 H 70-105 MG/DL Calcium Level 10.5 H 8.5-10.1 MG/DL Corrected Calcium 10.3 H 8.5-10.1 MG/DL Total Bilirubin 1.1 H 0.1-1.0 MG/DL Aspartate Amino Transf (AST/SGOT) 34 5-34 U/L Alanine Aminotransferase (ALT/SGPT) 20 0-55 U/L Alkaline Phosphatase 128 40-136 U/L Troponin I < 0.30 <0.30 NG/ML Total Protein 7.9 6.4-8.2 GM/DL Albumin 4.3 3.2-4.5 GM/DL Glucometer 130 H 70-110 MG/DL Lactic Acid Level 2.92 *H 2.25 *H 0.50-2.00 MMOL/L Test 07/17/18 01:27 Range/Units Urine Color YELLOW Urine Clarity SLIGHTLY CLOUDY Urine pH 7 5-9 Urine Specific [place] 1.015 L 1.016-1.022 Urine Protein 2+ H NEGATIVE Urine Glucose (UA) NEGATIVE NEGATIVE Urine Ketones 2+ H NEGATIVE Urine Nitrite POSITIVE H NEGATIVE Urine Bilirubin NEGATIVE NEGATIVE Urine Urobilinogen NORMAL NORMAL MG/DL Urine Leukocyte Esterase 2+ H NEGATIVE Urine RBC (Auto) 3+ H NEGATIVE Urine RBC NONE /HPF Urine WBC 2-5 /HPF Urine Squamous Epithelial Cells 0-2 /HPF Urine Crystals NONE /LPF Urine Bacteria LARGE H /HPF Urine Casts NONE /LPF Urine Mucus NEGATIVE /LPF Urine Culture Indicated NO My Orders Orders - KAE PETE Cbc With Automated Diff (07/16/18 22:34) Comprehensive Metabolic Panel (07/16/18 22:34) Blood Culture (07/16/18 22:34) Sputum Culture (07/16/18 22:34) Urinalysis (07/16/18 22:34) Urine Culture (07/16/18 22:34) Protime With Inr (07/16/18:34) Partial Thromboplastin Time (07/16/18:34) Chest 1 View, Ap/Pa Only (07/16/18 22:34) Saline Lock/Iv-Start (07/16/18 22:34) Saline Lock/Iv-Start (07/16/18 22:34) Ekg Tracing (07/16/18:34) Troponin I (07/16/18 22:34) Vital Signs Adult Sepsis Patie Q15M (07/16/18 22:34) Ondansetron Injection (Zofran Injectio (07/16/18 22:45) O2 (07/16/18:34) Remove Rings In Anticipation O (07/16/18:34) Lactic Acid Analyzer (07/16/18:34) Ns Iv 1000 Ml (Sodium Chloride 0.9%) (07/16/18 22:34) Cefepime Injection (Maxipime Injection) (07/16/18 22:45) Straight Cath For Spec.-Adult (07/17/18 00:50) Medications Given in ED Current Medications Medications Dose Ordered Sig/Scott Route Start Time Stop Time Status Last Admin Dose Admin Cefepime HCl 1000 mg/Sodium Chloride 50 ml @ 100 mls/hr ONCE ONCE IV 07/16/18 22:45 07/16/18 23:14 DC 07/16/18 22:53 100 MLS/HR Ondansetron HCl 4 mg PRN PRN IV 07/16/18 22:45 07/16/18 22:53 DC 07/16/18 22:53 4 MG Vital Signs/I&O 07/16/18 07/17/18 22:23 00:00 Pulse 100 79 Resp 18 14 B/P (MAP) 124/87 (99) 151/91 (111) Pulse Ox 98 98 O2 Delivery Room Air Capillary Refill : Less Than 3 Seconds Blood Pressure Mean: 99 Progress Note #1: Time: 23:07 Progress Note Patient appears acutely for what appears to be a 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 Her weakness and dizziness may be a symptom of her hyponatremia. In December 2017 it was 131. We obtained at EKG and troponin secondary to her nausea, age but she doesn't have any history or significant risk factors other than age and hypertension. Septic workup. Despite a history of receiving iron transfusions for anemia her hemoglobin is elevated as well as a modest elevation in her white count and platelets which probably is indicative of fluid volume contraction. The unremarkable BUNs 22 is probably secondary to the fact that she is extremely cachectic and has a low muscle mass. We have record of the upper and lower endoscopy [address] Fry but not the actual report itself. 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 Capsule never reached the cecum. Progress Note #2: Time: 00:51 Progress Note Patient is more alert and looking around answering questions better. She says she still feels poorly but she is improved. She is not able to produce a urine specimen so we are going to do a straight catheter specimen retrieval. Plan to hold onto her for her hyponatremia, Crohn's and get it acutely worked up and treated. ECG Initial ECG Impression Date: Jul 16, 2018 Initial ECG Impression Time: 22:36 Initial ECG Rate: 76 Initial ECG Rhythm: Normal Sinus Initial ECG Intervals: Normal Initial ECG Impression: Nonspecific Changes Initial ECG Comparisson: No Previous ECG Available Comment No ST elevation or depression. Diagnostic Imaging Diagonstic Imaging: Xray Plain Films/CT/US/NM/MRI: chest (1v) Comments No acute cardiopulmonary processes noted on one view chest Reviewed: Reviewed by Me Departure Communication (Admissions) Time/Spoke to Admitting Phy: 02:00 Discussed case lab imaging findings with Dr. Wren she agrees with ICU placement and surgical consultation. Time/Spoke to Consulting Phy: 02:00 Discussed case lab imaging findings with Dr. Perez and he agrees to see the patient in the morning. Impression Primary Impression: Severe dehydration Additional Impressions: Hyponatremia Acute hypokalemia History of Crohn's disease Urinary tract infection Qualified Codes: N30.00 - Acute cystitis without hematuria Disposition: ADMITTED INPATIENT Condition: Stable Admissions Decision to Admit Reason: Admit from ER (General) Decision to Admit/Date: Jul 17, 2018 Time/Decision to Admit Time: 02:15 Departure-Patient Inst. Referrals: ANDREW TSANG DO (PCP/Family) Primary Care Physician KAE PETE Jul 16, 2018 22:41
[2018-07-16 22:43] LABS: BASOPHILS % (AUTO) 0 % (0-10); EOSINOPHILS % (AUTO) 0 % (0-10); HEMATOCRIT 47 % (35-52); HEMOGLOBIN 16.9 G/DL (11.5-16.0); LYMPHOCYTES % (AUTO) 9 % (12-44); MEAN CORPUSCULAR HEMOGLOBIN 28 PG (25-34); MEAN CORPUSCULAR HGB CONC 36 G/DL (32-36); MEAN CORPUSCULAR VOLUME 77 FL (80-99); MEAN PLATELET VOLUME 8.4 FL (7.4-10.4); MONOCYTES # (AUTO) 0.8 X 10^3 (0.0-1.0); MONOCYTES % (AUTO) 7 % (0-12); NEUTROPHILS # (AUTO) 9.5 X 10^3 (1.8-7.8); NEUTROPHILS % (AUTO) 84 % (42-75); PLATELET COUNT 506 10^3/uL (130-400); RED BLOOD COUNT 6.13 10^6/uL (4.35-5.85); RED CELL DISTRIBUTION WIDTH 14.4 % (10.0-14.5); WHITE BLOOD COUNT 11.3 10^3/uL (4.3-11.0)
[2018-07-16] MEDS ORDERED: ONDANSETRON 4 MG/2 ML (SDV) Z0FRAN IV PRN (22:45)
[2018-07-16] MEDS ORDERED: CEFEPIME INJECTION 1,000 MG in NS (IVPB) 50 ML IV ONE (22:45)
[2018-07-16 22:55] LABS: INR 1.4 (0.8-1.4); PROTHROMBIN TIME PATIENT 16.7 SEC (12.2-14.7)
[2018-07-16 23:03] LABS: ALANINE AMINOTRANSFERASE 20 U/L (0-55); ALBUMIN 4.3 GM/DL (3.2-4.5); ALKALINE PHOSPHATASE 128 U/L (40-136); BILIRUBIN,TOTAL 1.1 MG/DL (0.1-1.0); BUN/CREATININE RATIO 25; CALCIUM 10.5 MG/DL (8.5-10.1); CARBON DIOXIDE 20 MMOL/L (21-32); CHLORIDE 87 MMOL/L (98-107); CREATININE SERUM 0.89 MG/DL (0.60-1.30); GFR ESTIMATED > 60; GLUCOSE 117 MG/DL (70-105); POTASSIUM 3.3 MMOL/L (3.6-5.0); TOTAL PROTEIN 7.9 GM/DL (6.4-8.2)
[2018-07-16 23:05] LABS: SODIUM 125 MMOL/L (135-145)
[2018-07-17] VITALS (15 sets, daily range): BP systolic 116–158; BP diastolic 66–94
[2018-07-17 01:34] LABS: BILIRUBIN,URINE NEGATIVE (NEGATIVE); CLARITY,URINE SLIGHTLY CLOUDY; COLOR,URINE YELLOW; GLUCOSE, URINE (UA) NEGATIVE (NEGATIVE); KETONES,URINE 2+ (NEGATIVE); LEUKOCYTE ESTERASE ,URINE 2+ (NEGATIVE); NITRITE,URINE POSITIVE (NEGATIVE); PH,URINE 7 (5-9); PROTEIN,URINE 2+ (NEGATIVE); UROBILINOGEN,URINE NORMAL (NORMAL)
[2018-07-17 01:45] LABS: BACTERIA,URINE LARGE /HPF; SQUAMOUS EPITHELIAL CELL,UR 0-2 /HPF
--- OUTSIDE RECORDS SUMMARY | 2018-07-17 02:43 | XMS REPORT | Continuity of Care Document ---
Author Author [facility] Address Unknown Phone Unavailable Allergies Active Description Code Type Severity Reaction Onset Reported/Identified Relationship to Patient Clinical Status Yes SULFA (sulfonamide) [id number] CLASS N/A N/A Yes SULFA (SULFONAMIDE ANTIBIOTICS) UNKNOWN DERMATOLOGICAL - OBDULIO Yes No Known Drug Allergies [id number] Drug Allergy Unknown N/A 09/17/2010 Medications Medication Packaging Start Date Stop Date Route Dosage Sig MECLIZINE TAB 25 MG (ANTIVERT) MG 06/06/2018 06/06/2018 PRN ONCE NORMAL SALINE W/KCL 40MEQ IV (SALINE IV BAG [id number]) MLS 06/06/2018 06/13/2018 CONTINUOUSEVERY 0 Hour NORMAL [...] 06/06/2018 06/21/2018 CONTINUOUSEVERY 0 Hour Flu vacc [id number] Persons 6mo T older(PF) IM syringe/vial(Fluarix QUAD) [...] MARYSE FORTE Ot V58.69 03/22/2015 NATHANAEL LOPEZ VEGETABLE PREPARER Ot 280.9 03/22/2015 NATHANAEL LOPEZ VEGETABLE PREPARER Ot 789.06 03/22/2015 NATHANAEL LOPEZ VEGETABLE PREPARER Ot V58.69 03/23/2015 NATHANAEL LOPEZ VEGETABLE PREPARER Ot 280.0 03/23/2015 NATHANAEL LOPEZ VEGETABLE PREPARER Ot 309.0 03/23/2015 NATHANAEL LOPEZ VEGETABLE PREPARER Ot 555.9 03/23/2015 NATHANAEL LOPEZ VEGETABLE PREPARER Ot V58.69 03/28/2015 NATHANAEL LOPEZ VEGETABLE PREPARER Ot 280.9 03/28/2015 NATHANAEL LOPEZ VEGETABLE PREPARER Ot 789.06 03/28/2015 NATHANAEL LOPEZ VEGETABLE PREPARER Ot V58.69 04/03/2015 NATHANAEL LOPEZ VEGETABLE PREPARER Ot 280.0 04/03/2015 NATHANAEL LOPEZ VEGETABLE PREPARER Ot 309.0 04/03/2015 LOPEZNATHANAEL Shea VEGETABLE PREPARER Ot 555.9 04/03/2015 NATHANAEL LOPEZ S VEGETABLE PREPARER Ot V58.69 04/11/2015 REANNA, BOBAN N Ot 280.0 04/11/2015 REANNA, BOBAN N Ot V58.69 04/13/2015 LOPEZNATHANAEL Shea S VEGETABLE PREPARER Ot 280.9 04/13/2015 LOPEZNATHANAEL Shea S VEGETABLE PREPARER Ot 789.06 04/13/2015 LOPEZNATHANAEL Shea S VEGETABLE PREPARER Ot V58.69 04/18/2015 LOPEZNATHANAEL Shea S VEGETABLE PREPARER Ot 280.0 04/18/2015 LOPEZNATHANAEL Shea S VEGETABLE PREPARER Ot 309.0 04/18/2015 NATHANAEL LOPEZ S VEGETABLE PREPARER Ot 555.9 04/18/2015 LOPEZNATHANAEL Shea S VEGETABLE PREPARER Ot V58.69 04/24/2015 REANNA, BOBAN N Ot [...] DISEASE, UNSPECIFIED, WITHOUT CO 12/21/2015 LOPEZNATHANAEL Shea VEGETABLE PREPARER Ot D50.0 IRON DEFICIENCY ANEMIA SECONDARY TO BLOO 12/21/2015 NATHANAEL LOPEZ VEGETABLE PREPARER Ot K50.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, UNSPECIFIED, WITHOUT CO 12/21/2015 NATHANAEL LOPEZ VEGETABLE PREPARER Ot R53.83 OTHER FATIGUE 12/21/2015 NATHANAEL LOPEZ VEGETABLE PREPARER Ot Z79.899 OTHER PENITENTIARY (CURRENT) DRUG THERAPY 01/09/2016 NATHANAEL LOPEZ VEGETABLE PREPARER Ot D50.0 IRON DEFICIENCY ANEMIA SECONDARY TO BLOO 01/09/2016 NATHANAEL LOPEZ VEGETABLE PREPARER Ot K50.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, UNSPECIFIED, WITHOUT CO 01/09/2016 NATHANAEL LOPEZ VEGETABLE PREPARER Ot R53.83 OTHER FATIGUE 01/09/2016 NATHANAEL LOPEZ VEGETABLE PREPARER Ot Z79.899 OTHER PENITENTIARY (CURRENT) DRUG THERAPY 01/12/2016 NATHANAEL LOPEZ VEGETABLE PREPARER Ot D50.0 IRON DEFICIENCY ANEMIA SECONDARY TO BLOO 01/12/2016 NATHANAEL LOPEZ VEGETABLE PREPARER Ot K50.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, UNSPECIFIED, WITHOUT CO 01/12/2016 NATHANAEL LOPEZ VEGETABLE PREPARER Ot R53.83 OTHER FATIGUE 01/12/2016 NATHANAEL LOPEZ VEGETABLE PREPARER Ot Z79.899 OTHER SURGERY TECH (CURRENT) DRUG THERAPY 02/01/2016 REANNAMARYSE N Ot D50.0 IRON DEFICIENCY ANEMIA SECONDARY TO BLOO 02/01/2016 REANNAMARYSE N Ot K50.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, UNSPECIFIED, WITHOUT CO 02/01/2016 REANNAMARYSE N Ot Z79.899 OTHER SURGERY TECH (CURRENT) DRUG THERAPY 02/09/2016 REANNAMARYSE N Ot D50.0 IRON DEFICIENCY ANEMIA SECONDARY TO BLOO 02/09/2016 REANNAMARYSE N Ot K50.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, UNSPECIFIED, WITHOUT CO 02/09/2016 REANNAMARYSE ROSARIO N Ot Z79.899 OTHER PENITENTIARY (CURRENT) DRUG THERAPY 03/17/2016 MARYSE FORTE N Ot D50.0 IRON DEFICIENCY ANEMIA SECONDARY TO BLOO 03/17/2016 REANNA, BOBAN N Ot K50.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, UNSPECIFIED, WITHOUT CO 03/17/2016 REANNA, BOBAN N Ot Z79.899 OTHER PENITENTIARY (CURRENT) DRUG THERAPY 07/26/2016 REANNA, BOBAN N Ot D50.0 IRON DEFICIENCY ANEMIA SECONDARY TO BLOO 07/26/2016 REANNA, BOBAN N Ot K50.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, UNSPECIFIED, WITHOUT CO 07/26/2016 REANNA, BOBAN N Ot Z79.899 OTHER PENITENTIARY (CURRENT) DRUG THERAPY 08/06/2016 REANNA, BOBAN N Ot D50.0 IRON DEFICIENCY ANEMIA SECONDARY TO BLOO 08/06/2016 REANNA, BOBAN N Ot K50.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, UNSPECIFIED, WITHOUT CO 08/06/2016 REANNA, BOBAN N Ot Z79.899 OTHER SURGERY TECH (CURRENT) DRUG THERAPY 09/11/2016 REANNA, BOBAN N Ot D50.0 IRON DEFICIENCY ANEMIA SECONDARY TO BLOO 09/11/2016 REANNA, BOBAN N Ot K50.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, UNSPECIFIED, WITHOUT CO 09/11/2016 REANNA, BOBAN N Ot Z79.899 OTHER PENITENTIARY (CURRENT) DRUG THERAPY 09/12/2016 REANNA, BOBAN N Ot D50.0 IRON DEFICIENCY ANEMIA SECONDARY TO BLOO 09/12/2016 REANNA, BOBAN N Ot K50.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, UNSPECIFIED, WITHOUT CO 09/12/2016 REANNA, BOBAN N Ot Z79.899 OTHER PENITENTIARY (CURRENT) DRUG THERAPY 12/13/2016 REANNA, BOBAN N Ot D50.0 IRON DEFICIENCY ANEMIA SECONDARY TO BLOO 12/13/2016 REANNA, BOBAN N Ot K50.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, UNSPECIFIED, WITHOUT CO 12/13/2016 REANNA, BOBAN N Ot Z79.899 OTHER SURGERY TECH (CURRENT) DRUG THERAPY 01/23/2017 REANNA, BOBAN N Ot D50.0 IRON DEFICIENCY ANEMIA SECONDARY TO BLOO 01/23/2017 REANNA, BOBAN N Ot K50.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, UNSPECIFIED, WITHOUT CO 01/23/2017 REANNA, BOBAN N Ot Z79.899 OTHER PENITENTIARY (CURRENT) DRUG THERAPY 03/12/2017 REANNA, BOBAN N Ot D50.0 IRON DEFICIENCY ANEMIA SECONDARY TO BLOO 03/12/2017 REANNA, BOBMONSERRAT N Ot K50.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, UNSPECIFIED, WITHOUT CO 03/12/2017 REANNA, BOBMONSERRAT N Ot Z79.899 OTHER PENITENTIARY (CURRENT) DRUG THERAPY 06/11/2017 REANNA, MARYSE N [...] 01/16/2018 REANNA, MARYSE N Ot Z79.899 OTHER PENITENTIARY (CURRENT) DRUG THERAPY 01/30/2018 REANNA, MARYSE N Ot D50.0 IRON DEFICIENCY ANEMIA SECONDARY TO BLOO 01/30/2018 REANNA, BOBAN N Ot K50.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, UNSPECIFIED, WITHOUT CO 01/30/2018 REANNA, BOBMONSERRAT N Ot Z79.899 OTHER SURGERY TECH (CURRENT) DRUG THERAPY 06/06/2018 Calabrese, Anabel-Sheri W [...] 5-8.5 Urine-Protein Negative Negative Urine-RBC Rare/HPF Urine-Specific [place] 1.015 1.000-1.030 Urine-WBC 5-10/HPF Urobilinogen 0.2 E.U./dL [...] 0.7 mg/dL 0.2-1.2 TP 7.2 g/dL 6.0-8.3 Complete blood count (CBC) with automated white blood cell (WBC) differential - 07/16/18 22:30 Blood leukocytes automated count (number/volume) 11.3 10*3/uL 4.3-11.0 Blood erythrocytes automated count (number/volume) 6.13 10*6/uL 4.35-5.85 Venous blood hemoglobin measurement (mass/volume) 16.9 g/dL 11.5-16.0 Blood hematocrit (volume fraction) 47 % 35-52 Automated erythrocyte mean corpuscular volume 77 [foz_us] 80-99 Automated erythrocyte mean corpuscular hemoglobin (mass per erythrocyte) 28 pg 25-34 Automated erythrocyte mean corpuscular hemoglobin concentration measurement ( mass/volume) 36 g/dL 32-36 Automated erythrocyte distribution width ratio 14.4 % 10.0-14.5 Automated blood platelet count (count/volume) 506 10*3/uL 130-400 Automated blood platelet mean volume measurement 8.4 [foz_us] 7.4-10.4 Automated blood neutrophils/100 leukocytes 84 % 42-75 Automated blood lymphocytes/100 leukocytes 9 % 12-44 Blood monocytes/100 leukocytes 7 % 0-12 Automated blood eosinophils/100 leukocytes 0 % 0-10 Automated blood basophils/100 leukocytes 0 % 0-10 Blood neutrophils automated count (number/volume) 9.5 10*3 1.8-7.8 Blood lymphocytes automated count (number/volume) 1.0 10*3 1.0-4.0 Blood monocytes automated count (number/volume) 0.8 10*3 0.0-1.0 Automated eosinophil count 0.0 10*3/uL 0.0-0.3 Automated blood basophil count (count/volume) 0.0 10*3/uL 0.0-0.1 Comprehensive metabolic panel - 07/16/18 22:30 Serum or plasma sodium measurement (moles/volume) 125 mmol/L 135-145 Serum or plasma potassium measurement (moles/volume) 3.3 mmol/L 3.6-5.0 Serum or plasma chloride measurement (moles/volume) 87 mmol/L 98-107 Carbon dioxide 20 mmol/L 21-32 Serum or plasma anion gap determination (moles/volume) 18 mmol/L 5-14 Serum or plasma urea nitrogen measurement (mass/volume) 22 mg/dL 7-18 Serum or plasma creatinine measurement (mass/volume) 0.89 mg/dL 0.60-1.30 Serum or plasma urea nitrogen/creatinine mass ratio 25 NRG Serum or plasma creatinine measurement with calculation of estimated glomerular filtration rate > NRG Serum or plasma glucose measurement (mass/volume) 117 mg/dL 70-105 Serum or plasma calcium measurement (mass/volume) 10.5 mg/dL 8.5-10.1 Serum or plasma total bilirubin measurement (mass/volume) 1.1 mg/dL 0.1-1.0 Serum or plasma alkaline phosphatase measurement (enzymatic activity/volume) 128 U/L 40-136 Serum or plasma aspartate aminotransferase measurement (enzymatic activity/ volume) 34 U/L 5-34 Serum or plasma alanine aminotransferase measurement (enzymatic activity/volume ) 20 U/L 0-55 Serum or plasma protein measurement (mass/volume) 7.9 g/dL 6.4-8.2 Serum or plasma albumin measurement (mass/volume) 4.3 g/dL 3.2-4.5 CALCIUM CORRECTED 10.3 mg/dL 8.5-10.1 Serum or plasma troponin i.cardiac measurement (mass/volume) - 07/16/18 22:30 Serum or plasma troponin i.cardiac measurement (mass/volume) < ng/ mL <0.30 PT panel in platelet poor plasma by coagulation assay - 07/16/18 22:30 Prothrombin time (PT) in platelet poor plasma by coagulation assay 16.7 s 12.2-14.7 INR in platelet poor plasma or blood by coagulation assay 1.4 0.8-1.4 Activated partial thromboplastin time (aPTT) in platelet poor plasma bycoagulation assay - 07/16/18 22:30 Activated partial thromboplastin time (aPTT) in platelet poor plasma bycoagulation assay 36 s 24-35 Capillary blood glucose measurement by glucometer (mass/volume) - 07/16/18 22: 31 Capillary blood glucose measurement by glucometer (mass/volume) 130 mg/dL 70-110 Blood lactic acid measurement (moles/volume) - 07/16/18 22:45 Blood lactic acid measurement (moles/volume) 2.92 mmol/L 0.50-2.00 Serum or plasma lactate measurement (moles/volume) - 07/17/18 00:50 Serum or plasma lactate measurement (moles/volume) 2.25 mmol/L 0.50-2.00 Complete urinalysis with reflex to culture - 07/17/18 01:27 Urine color determination YELLOW NRG Urine clarity determination SLIGHTLY CLOUDY NRG Urine pH measurement by test strip 7 5-9 Specific gravity of urine by test strip 1.015 1.016- 1.022 Urine protein assay by test strip, semi-quantitative 2+ NEGATIVE Urine glucose detection by automated test strip NEGATIVE NEGATIVE Erythrocytes detection in urine sediment by light microscopy 3+ NEGATIVE Urine ketones detection by automated test strip 2+ NEGATIVE Urine nitrite detection by test strip POSITIVE NEGATIVE Urine total bilirubin detection by test strip NEGATIVE NEGATIVE Urine urobilinogen measurement by automated test strip (mass/volume) NORMAL NORMAL Urine leukocyte esterase detection by dipstick 2+ NEGATIVE Automated urine sediment erythrocyte count by microscopy (number/high power field) NONE NRG Automated urine sediment leukocyte count by microscopy (number/high power field ) [HPF] NRG Bacteria detection in urine sediment by light microscopy LARGE NRG Squamous epithelial cells detection in urine sediment by light microscopy 0-2 NRG Crystals detection in urine sediment by light microscopy NONE NRG Casts detection in urine sediment by light microscopy NONE NRG Mucus detection in urine sediment by light microscopy NEGATIVE NRG Complete urinalysis with reflex to culture NO NRG Encounters ACCT No. Visit Date/Time Discharge Status Pt. Type Provider Facility Loc./Unit Complaint [id number] 06/16/2018 14:45:12 06/16/2018 23:59:59 CLS Outpatient Robin Poon V [id number] 06/11/2018 15:25:00 Document Registration [id number] 06/29/2018 10:53:38 Document Registration [id number] 06/29/2018 10:49:36 Document Registration [id number] 12/23/2017 09:57:00 12/23/2017 23:59:59 CLS Outpatient MARYSE FORTE [facility] [address] ONC [id number] 07/01/2017 10:17:00 09/08/2017 00:01:00 DIS Outpatient MARSYE FORTE [facility] [address] ONC [id number] 01/09/2017 09:40:00 03/12/2017 00:01:00 DIS Outpatient MARYSE FORTE [facility] [address] ONC [id number] 06/13/2016 13:30:00 09/11/2016 00:01:00 DIS Outpatient MARYSE FORTE [facility] [address] ONC [id number] 01/22/2016 10:30:00 03/17/2016 00:01:00 DIS Outpatient MARYSE FORTE [facility] [address] ONC [id number] 12/12/2015 14:34:00 12/12/2015 23:59:59 CLS Outpatient NATHANAEL LOPEZ S VEGETABLE PREPARER [facility] [address] ONC [id number] 06/12/2015 14:38:00 06/12/2015 23:59:59 CLS Outpatient MARYSE FORTE [facility] [address] ONC [id number] 02/02/2015 09:27:00 04/26/2015 00:01:00 DIS Outpatient MARYSE FORTE [facility] [address] ONC [id number] 03/10/2015 09:52:00 03/10/2015 23:59:59 CLS Outpatient YESSY LOPEZAH S VEGETABLE PREPARER [facility] [address] ONC [id number] 01/26/2015 09:21:00 01/26/2015 23:59:59 CLS Outpatient NATHANAEL LOPEZ S VEGETABLE PREPARER [facility] [address] ONC [id number] 01/21/2013 14:34:00 01/21/2013 23:59:59 CLS Outpatient [id number] 07/17/2018 02:10:00 ACT Inpatient EDDIE ALCALA YANET [facility] [address] ICU UTI,SEVERE DEHYDRATION FLUID DISTURBANCES [id number] 06/23/2018 09:23:00 06/23/2018 23:59:00 DIS Outpatient Robin Poon [id number] 06/12/2018 08:55:00 06/12/2018 23:59:00 DIS Outpatient Radhika Calabrese [id number] 06/06/2018 15:06:00 06/09/2018 12:10:00 DIS Inpatient Radhika Calabrese [facility] MED-SURG [id number] 06/06/2018 14:12:49 Document Registration
[2018-07-17] MEDS ORDERED: NS W/KCL 40 MEQ/L 1,000 ML IV ONE (03:15)
[2018-07-17] MEDS: NS W/KCL 40 MEQ/L 1,000 ML IV SCH ×2 (03:20→18:05)
[2018-07-17] MEDS ORDERED: ACETAMINOPHEN 500 MG TAB (TYLENOL) PO PRN (05:15)
[2018-07-17 05:44] LABS: BASOPHILS % (AUTO) 0 % (0-10); EOSINOPHILS % (AUTO) 0 % (0-10); HEMATOCRIT 41 % (35-52); HEMOGLOBIN 14.9 G/DL (11.5-16.0); LYMPHOCYTES # (AUTO) 0.7 X 10^3 (1.0-4.0); LYMPHOCYTES % (AUTO) 7 % (12-44); MEAN CORPUSCULAR HEMOGLOBIN 28 PG (25-34); MEAN CORPUSCULAR HGB CONC 36 G/DL (32-36); MEAN CORPUSCULAR VOLUME 77 FL (80-99); MEAN PLATELET VOLUME 8.3 FL (7.4-10.4); MONOCYTES # (AUTO) 0.9 X 10^3 (0.0-1.0); MONOCYTES % (AUTO) 8 % (0-12); NEUTROPHILS # (AUTO) 9.4 X 10^3 (1.8-7.8); NEUTROPHILS % (AUTO) 85 % (42-75); PLATELET COUNT 444 10^3/uL (130-400); RED BLOOD COUNT 5.38 10^6/uL (4.35-5.85); RED CELL DISTRIBUTION WIDTH 14.2 % (10.0-14.5); WHITE BLOOD COUNT 11.1 10^3/uL (4.3-11.0)
--- NOTE | 2018-07-17 05:56 | Pulmonary Consultation ---
History of Present Illness History of Present Illness Date of Consultation 07/17/18 05:44 Time Seen by Provider: 05:44 Date of Admission History of Present Illness 81yo with hx of chronic depression and hx of crohns's presented to ED secondary to N/N/D and progressive weakness over the last several weeks. Pt was recently dx with pulmonary nodule however left [facility] against medical advice. Pt has lost 10lbs over the last month. 1hr ago she was 112lbs and she is now 85lbs. She is not able to eat or drink anything without nausea/vomiting. She has not had a cholecystectomy. Allergies and Home Medications Allergies Coded Allergies: No Known Drug Allergies (Unverified , 09/17/10) Past Rgilmxv-Yerrrq-Pvukau Hx Patient Social History Alcohol Use: Denies Use Recreational Drug Use: No Smoking Status: Never a Smoker 2nd Hand Smoke Exposure: No Recent Foreign Travel: No Contact w/Someone Who Travel: No Recent Infectious Disease Expo: No Recent Hopitalizations: No Immunizations Up To Date Date of Pneumonia Vaccine: Jun 06, 2018 Date of Influenza Vaccine: Jun 06, 2018 Seasonal Allergies Seasonal Allergies: No Past Medical History Surgeries: Yes Appendectomy Respiratory: No Cardiac: Yes Hypertension Neurological: No Genitourinary: No UTI-Chronic Gastrointestinal: Yes Crohns Disease Musculoskeletal: No Endocrine: No HEENT: No Cataract Cancer: No Psychosocial: Yes Depression Integumentary: No Blood Disorders: Yes Review of Systems Time Seen by Provider: 05:56 Sepsis Event Evaluation Height, Weight, BMI Height: 5'2.00" Weight: 85lbs. 0.0oz. 38.908098rq; 15.6 BMI Method:Stated Exam Exam Vital Signs Date Time Temp Pulse Resp B/P (MAP) Pulse Ox O2 Delivery O2 Flow Rate FiO2 07/17/18 05:00 80 17 125/66 (85) 99 Room Air 07/17/18 04:00 99 17 128/94 (105) 99 Room Air 07/17/18 03:15 89 12 130/78 (95) 99 Room Air 07/17/18 03:13 91 07/17/18 03:04 97.5 07/17/18 02:24 86 14 134/79 (97) 98 Room Air 07/17/18 00:00 79 14 151/91 (111) 98 Room Air 07/16/18 22:23 100 18 124/87 (99) 98 Height & Weight Height: 5'2.00" Weight: 85lbs. 0.0oz. 38.222809mb; 15.6 BMI Method:Stated General Appearance: No Apparent Distress, Chronically ill, Cachetic HEENT: PERRL/EOMI, TMs Normal; No Moist Mucous Membranes Neck: Full Range of Motion, Normal Inspection, Non Tender Respiratory: Chest Non Tender, Lungs Clear, Normal Breath Sounds, No Accessory Muscle Use, No Respiratory Distress Cardiovascular: Regular Rate, Rhythm, No Edema, Normal Peripheral Pulses Capillary Refill: Less Than 3 Seconds Gastrointestinal: soft; No no pulsatile mass, No distended, No guarding, No rebound, No tenderness; other (abdominal subq emphysema on palpation. no pain with palpation. . ) Extremity: Normal Capillary Refill, Non Tender, No Calf Tenderness, No Pedal Edema Neurologic/Psychiatric: Alert, Oriented x3, No Motor/Sensory Deficits, Normal Mood/Affect, claims account specialist II-XII Norm as Tested, Other Lymphatic: No Adenopathy Results Lab Laboratory Tests 07/16/18 22:30 Assessment/Plan Assessment/Plan N/v wt loss r/o cancer -Check Ct of abd/pelvis -Pt is not able to drink contrast -check amylase lipase Weakness Hx of recent lung nodule dx at [facility] -Add CT of chest to abd CT Elevated bilirubin -Check abdominal US Hyponatremia pobably secondary to n/v r/o cancer - KAYLA PARKER DO Jul 17, 2018 05:56
[2018-07-17 06:03] LABS: BUN/CREATININE RATIO 27; CALCIUM 9.2 MG/DL (8.5-10.1); CARBON DIOXIDE 19 MMOL/L (21-32); CHLORIDE 95 MMOL/L (98-107); CREATININE SERUM 0.71 MG/DL (0.60-1.30); GFR ESTIMATED > 60; GLUCOSE 101 MG/DL (70-105); POTASSIUM 3.4 MMOL/L (3.6-5.0); SODIUM 127 MMOL/L (135-145)
[2018-07-17 06:09] LABS: AMYLASE 87 U/L (25-125); LIPASE 57 U/L (8-78)
[2018-07-17] MEDS ORDERED: NS 250 ML (IVPB) BAG IV ONE (06:15)
[2018-07-17] MEDS ORDERED: IOHEXOL 350 MG/ML 100 ML (OMNIPAQUE 350) VIAL IV ONE (06:15)
[2018-07-17] MEDS ORDERED: RECEIVED CONTRAST (Hold Metformin) IV SCH (06:15)
[2018-07-17] MEDS ORDERED: CATHETER FLUSH 10 ML SYR IV PRN (06:15)
--- NOTE | 2018-07-17 06:49 | Diagnostic Imaging Report ---
Portable erect AP chest at 1049 hours. INDICATION: Dehydration. There are no prior studies available for comparison. FINDINGS: The heart size is within normal limits. The lungs are clear. There is no evidence for failure, pneumonia or for pleural effusion. Mediastinum is not widened. The osseous structures are intact. IMPRESSION: There is no evidence for an acute cardiopulmonary abnormality. Dictated by: Dictated on workstation # [id number]
--- NOTE | 2018-07-17 07:43 | Diagnostic Imaging Report ---
PROCEDURE: CT chest, abdomen, and pelvis with contrast. TECHNIQUE: Multiple contiguous axial images were obtained through the chest, abdomen, and pelvis after the administration of intravenous contrast. INDICATION: Nausea and vomiting. Lethargy. UTI. History of Crohn's. Hysterectomy. FINDINGS: CT chest: The lungs are well-aerated. No infiltrates or masses are present. No pleural effusions or pericardial effusions. There is good opacification of the aorta and pulmonary arteries. Aorta is atherosclerotic. No evidence of aortic dissection. The aortic root measures 3.2 cm. There is calcification of the aortic valve and coronary arteries. No evidence of mediastinal or hilar adenopathy of pathologic size. No bony lesions. IMPRESSION: No acute findings noted within the chest. CT abdomen and pelvis: Good opacification of the aorta and abdominal vessels. Aorta is atherosclerotic without aneurysm. The liver shows mild fatty changes without focal lesions. The gallbladder and bile ducts are normal. The pancreas is normal. The spleen is normal. The adrenal glands are normal. The kidneys appear normal. There is normal enhancement of the abdominal organs following IV contrast. The stomach is not distended. Small bowel is not dilated. No evidence of bowel obstruction. Colon shows some fluid throughout though no evidence of solid stool. Colon is not distended. Could not exclude bowel wall thickening from this noncontrasted nondistended study. The uterus is absent. Bladder appears normal. There is no free air or free fluid. No intra-abdominal adenopathy of pathologic size. IMPRESSION: No acute abdominal findings demonstrated. Atherosclerotic changes of the aorta. Dictated by: Dictated on workstation # [id number]
--- NOTE | 2018-07-17 08:47 | History & Physical-Hospitalist ---
History of Present Illness HPI/Chief Complaint CC: Weakness and unable to tolerate PO fluids HPI: This is a 78-year-old white female patient of Dr. Poon in [place] who presents to the ER with weakness and unable to tolerate oral fluids was found to have elevated lactic acid and a slightly abnormal UA so she was placed in the ICU given aggressive IV fluids and currently is stable. Apparently she left [facility] recently for similar complaints AGAINST MEDICAL ADVICE and she thought they told her she had a pulmonary nodule but CT scan here did not show any abnormality. She has a long-standing history of depression so she will be screened for [facility] and evaluate the need to admit there to resolve her issues. To note she's never had an endoscopy that she reports she has Crohn's disease and may be 9 years ago she had a capsule endoscopy per . Source: patient, family, RN/MD Exam Limitations: clinical condition Date Seen 07/17/18 Time Seen by a Provider: 10:30 Attending Physician Charlotte Richards DO PCP Robin Poon DO Referring Physician Date of Admission Jul 17, 2018 at 02:10 Home Medications & Allergies Home Medications Reviewed patient Home Medication Reconciliation performed by pharmacy medication reconciliations dialysis equipment technician and/or nursing. Patients Allergies have been reviewed. Allergies Allergies Coded Allergies No Known Drug Allergies (Unverified09/17/10) Past Yjnfpab-Wqhwhu-Drulsk Hx Past Med/Social Hx: Reviewed Nursing Past Med/Soc Hx, Reviewed and Corrections made Patient Social History Marrital Status: Employed/Student: retired Alcohol Use: Denies Use Recreational Drug Use: No Smoking Status: Never a Smoker 2nd Hand Smoke Exposure: No Physical Abuse Screen: No Sexual Abuse: No Recent Foreign Travel: No Contact w/other who traveled: No Recent Hopitalizations: No Recent Infectious Disease Expo: No Immunizations Up To Date Date of Pneumonia Vaccine: Jun 06, 2018 Date of Influenza Vaccine: Jun 06, 2018 Seasonal Allergies Seasonal Allergies: No Past Medical History Surgeries: Appendectomy Cardiac: Hypertension Genitourinary: UTI-Chronic Gastrointestinal: Crohns Disease HEENT: Cataract Psychosocial: Depression History of Blood Disorders: Yes Review of Systems Constitutional: no symptoms reported, malaise, weakness EENTM: no symptoms reported Respiratory: no symptoms reported Cardiovascular: no symptoms reported Gastrointestinal: loss of appetite Genitourinary: no symptoms reported Musculoskeletal: no symptoms reported Skin: no symptoms reported Psychiatric/Neurological: Depressed All Other Systems Reviewed Negative Unless Noted: Yes Physical Exam Physical Exam Vital Signs Vital Signs - First Documented 07/16/18 07/17/18 07/17/18 22:23 00:00 03:04 Temp 97.5 Pulse 100 Resp 18 B/P (MAP) 124/87 (99) Pulse Ox 98 O2 Delivery Room Air Capillary Refill : Less Than 3 Seconds Height, Weight, BMI Height: 5'2.00" Weight: 85lbs. 0.0oz. [id number]; 15.6 BMI Method:Stated General Appearance: No Apparent Distress, WD/WN, Chronically ill, Cachetic Eyes: Bilateral Eye Normal Inspection, Bilateral Eye PERRL HEENT: PERRL/EOMI, Normal ENT Inspection, Pharynx Normal Neck: Full Range of Motion, Normal Inspection, Non Tender, Supple, Carotid Bruit Respiratory: Chest Non Tender, Lungs Clear, Normal Breath Sounds, No Accessory Muscle Use, No Respiratory Distress Cardiovascular: Regular Rate, Rhythm, No Edema, No Gallop, No JVD, No Murmur, Normal Peripheral Pulses Gastrointestinal: Normal Bowel Sounds, No Organomegaly, No Pulsatile Mass, Non Tender, Soft Back: Normal Inspection, No CVA Tenderness, No Vertebral Tenderness Extremity: Normal Capillary Refill, Normal Inspection, Normal Range of Motion, Non Tender, No Calf Tenderness, No Pedal Edema Neurologic/Psychiatric: Alert, Oriented x3, No Motor/Sensory Deficits, Depressed Affect Skin: Normal Color, Warm/Dry Lymphatic: No Adenopathy Results Results/Procedures Labs Laboratory Tests 07/16/18 22:30 07/17/18 05:29 Patient resulted labs reviewed. Assessment/Plan Admission Diagnosis Assessment: Profound dehydration Elevated lactic acid Slightly abnormal urinalysis placed on Rocephin empirically Long-standing depression Significant weight loss History of lung nodule per patient but none on CT scan here Plan: Appreciate general surgery evaluation but no surgery or procedure is planned other than recommending endoscopy due to history of Crohn's disease but never had endoscopy Maintain Rocephin Await final urine culture results Encouraged oral intake Chiara psych evaluation Admission Status: Inpatient Order (span 2 midnights) Reason for Inpatient Admission: Elevated lactic acid along with inability to eat or drink and abnormal UA will require inpatient stay Diagnosis/Problems Diagnosis/Problems (1) Severe dehydration Status: Acute (2) Severe protein-calorie malnutrition (Willis: less than 60% of standard weight ) Status: Acute (3) Depression Status: Chronic Qualifiers: Depression Type: unspecified Qualified Codes: F32.9 - Major depressive disorder, single episode, unspecified (4) H/O emotional problems Status: Chronic (5) Hyponatremia Status: Acute (6) Urinary tract infection Status: Acute Qualifiers: Urinary tract infection type: acute cystitis Hematuria presence: without hematuria Qualified Codes: N30.00 - Acute cystitis without hematuria (7) Acute hypokalemia Status: Acute Clinical Quality Measures DVT/VTE Risk/Contraindication: Risk Factor Score Per Nursin RFS Level Per Nursing on Admit: 3=High CHARLOTTE RICHARDS DO Jul 17, 2018 08:47
[2018-07-17] MEDS: POTASSIUM CL 10MEQ/50ML IVPB 50 ML IV SCH ×2 (08:50→08:53)
--- NOTE | 2018-07-17 09:40 | Consultation ---
History of Present Illness History of Present Illness Patient Consulted On(baron/time) 07/17/18 09:34 Time Seen by Provider: 08:16 History of Present Illness Surgery asked to consult regarding Hx of Crohn's, possible abdominal pain, possible SubQ Emphysema of abdomenl HPI per ED: patient presents to ER by private conveyance in the back of her car laying down complaining of nausea. She says she's been nauseated vomiting and diarrhea for the past several weeks. Twice in the last months she's been to the ER once to [place] where she was given fluids and workup and encouraged to go into behavioral health to help her with her chronic depression decreased appetite. She has a history of Crohn's disease. She was seen at [facility] and they started a workup saw nodule on her chest but then she went home AGAINST MEDICAL ADVICE before the complete her workup. Today the family brings her in because she continues to get weaker sicker and they say that her decline started about 4 years ago after her son committed suicide. Other than her history of Crohn's disease and iron deficiency anemia for which she is followed by Dr. Rhodes she has high blood pressure. She is followed by Dr. TSANG in [place]. She's not been taking her medications routinely nor any fluids for the past couple days. Return she does take fluids she vomits them back up immediately. She has been refusing any medical workup until she got so sick and weak her daughters drug her to the ER. When I spoke to pt this am she denied abdominal pain and does not really answer questions well, according to nurse this has been an ongoing problem (possible dementia) per and daughter. Pt states she doesn't want to eat; "picky eater and not hungry". She relates that son committed suicide this year. Allergies and Home Medications Allergies Coded Allergies: No Known Drug Allergies (Unverified , 09/17/10) Patient Home Medication List Home Medication List Reviewed: Yes Past Ulrudiv-Izqblg-Qptakj Hx Patient Social History Alcohol Use: Denies Use Recreational Drug Use: No Smoking Status: Never a Smoker 2nd Hand Smoke Exposure: No Recent Foreign Travel: No Contact w/Someone Who Travel: No Recent Infectious Disease Expo: No Recent Hopitalizations: No Physical Abuse Screen: No Sexual Abuse: No Immunizations Up To Date Date of Pneumonia Vaccine: Jun 06, 2018 Date of Influenza Vaccine: Jun 06, 2018 Seasonal Allergies Seasonal Allergies: No Surgeries History of Surgeries: Yes Surgeries: Appendectomy Respiratory History of Respiratory Disorde: No Cardiovascular History of Cardiac Disorders: Yes Cardiac Disorders: Hypertension Neurological History of Neurological Disord: No Genitourinary History of Genitourinary Disor: No Genitourinary Disorders: UTI-Chronic Gastrointestinal History of Gastrointestinal Di: Yes Gastrointestinal Disorders: Crohns Disease Musculoskeletal History of Musculoskeletal Dis: No Endocrine History of Endocrine Disorders: No HEENT History of HEENT Disorders: No HEENT Disorders: Cataract Cancer History of Cancer: No Psychosocial History of Psychiatric Problem: Yes Behavioral Health Disorders: Depression Integumentary History of Skin or Integumenta: No Blood Transfusions History of Blood Disorders: Yes Family Medical History Significant Family History: Other Conditions/Hx (Pt unable to answer this question) Review of Systems-General ROS-Unable to Obtain: unable to fully obtain, because pt states "I don't know". Constitutional: malaise, weakness, weight loss Respiratory: No cough, No dyspnea on exertion Cardiovascular: No chest pain, No palpitations Gastrointestinal: No abdominal pain; dysphagia Physical Exam-General Problems Physical Exam Vital Signs Vital Signs - First Documented 07/16/18 07/17/18 07/17/18 22:23 00:00 03:04 Temp 97.5 Pulse 100 Resp 18 B/P (MAP) 124/87 (99) Pulse Ox 98 O2 Delivery Room Air Capillary Refill : Less Than 3 Seconds General Appearance: no apparent distress, cachetic Eyes: Bilateral Eye PERRL, Bilateral Eye EOMI HEENT: pharynx normal; No scleral icterus (R), No scleral icterus (L), No pale conjunctivae (R), No pale conjunctivae (L) Neck: non-tender, supple Respiratory: chest non-tender, lungs clear, normal breath sounds, no respiratory distress, no accessory muscle use Cardiovascular: regular rate, rhythm, no edema, no murmur Gastrointestinal: normal bowel sounds, non tender, soft, no organomegaly, no pulsatile mass, other (No SubQ emphysema or crepitance palpated) Extremities: no pedal edema, no calf tenderness, normal capillary refill Neurologic/Psychiatric: die reamer II-XII nml as tested, no motor/sensory deficits, depressed affect, other (Pt knows her year, but couldn't state age. She thought she was in [facility], doesn't know the year) Skin: normal color, warm/dry Lymphatic: no adenopathy (neck, axilla or groin) Data Review Labs Laboratory Tests 07/16/18 22:30: White Blood Count 11.3H, Red Blood Count 6.13H, Hemoglobin 16.9H, Hematocrit 47 , Mean Corpuscular Volume 77L, Mean Corpuscular Hemoglobin 28, Mean Corpuscular Hemoglobin Concent 36, Red Cell Distribution Width 14.4, Platelet Count 506H, Mean Platelet Volume 8.4, Neutrophils (%) (Auto) 84H, Lymphocytes (%) (Auto) 9L , Monocytes (%) (Auto) 7, Eosinophils (%) (Auto) 0, Basophils (%) (Auto) 0, Neutrophils # (Auto) 9.5H, Lymphocytes # (Auto) 1.0, Monocytes # (Auto) 0.8, Eosinophils # (Auto) 0.0, Basophils # (Auto) 0.0, Prothrombin Time 16.7H, INR Comment 1.4, Activated Partial Thromboplast Time 36H, Sodium Level 125*L, Potassium Level 3.3L, Chloride Level 87L, Carbon Dioxide Level 20L, Anion Gap 18H, Blood Urea Nitrogen 22H, Creatinine 0.89, Estimat Glomerular Filtration Rate > 60, BUN/Creatinine Ratio 25, Glucose Level 117H, Calcium Level 10.5H, Corrected Calcium 10.3H, Total Bilirubin 1.1H, Aspartate Amino Transf (AST/SGOT ) 34, Alanine Aminotransferase (ALT/SGPT) 20, Alkaline Phosphatase 128, Troponin I < 0.30, Total Protein 7.9, Albumin 4.3 07/16/18 22:31: Glucometer 130H 07/16/18 22:45: Lactic Acid Level 2.92*H 07/17/18 00:50: Lactic Acid Level 2.25*H 07/17/18 01:27: Urine Color YELLOW, Urine Clarity SLIGHTLY CLOUDY, Urine pH 7, Urine Specific [place] 1.015L, Urine Protein 2+H, Urine Glucose (UA) NEGATIVE, Urine Ketones 2+ H, Urine Nitrite POSITIVEH, Urine Bilirubin NEGATIVE, Urine Urobilinogen NORMAL , Urine Leukocyte Esterase 2+H, Urine RBC (Auto) 3+H, Urine RBC NONE, Urine WBC 2-5, Urine Squamous Epithelial Cells 0-2, Urine Crystals NONE, Urine Bacteria LARGEH, Urine Casts NONE, Urine Mucus NEGATIVE, Urine Culture Indicated NO 07/17/18 05:29: White Blood Count 11.1H, Red Blood Count 5.38, Hemoglobin 14.9, Hematocrit 41, Mean Corpuscular Volume 77L, Mean Corpuscular Hemoglobin 28, Mean Corpuscular Hemoglobin Concent 36, Red Cell Distribution Width 14.2, Platelet Count 444H, Mean Platelet Volume 8.3, Neutrophils (%) (Auto) 85H, Lymphocytes (%) (Auto) 7L , Monocytes (%) (Auto) 8, Eosinophils (%) (Auto) 0, Basophils (%) (Auto) 0, Neutrophils # (Auto) 9.4H, Lymphocytes # (Auto) 0.7L, Monocytes # (Auto) 0.9, Eosinophils # (Auto) 0.0, Basophils # (Auto) 0.0, Sodium Level 127L, Potassium Level 3.4L, Chloride Level 95L, Carbon Dioxide Level 19L, Anion Gap 13, Blood Urea Nitrogen 19H, Creatinine 0.71, Estimat Glomerular Filtration Rate > 60, BUN /Creatinine Ratio 27, Glucose Level 101, Calcium Level 9.2, Phosphorus Level 3.0 , Magnesium Level 2.0, Amylase Level 87, Lipase 57 Assessment/Plan Assessment/Plan Assessment/Plan Depression Dementia Malnutrition Hx of Crohns Pt had CT of chest/abd/pelvis which did not show any SubQ emphysema and no acute intra-abdominal process. I believe pt has severe behavioral issues and would best be served by seeing mental health. No surgery is needed at this time. Thank you for this consult. Max medical management, fluids and IV electrolyte replacement. Clinical Quality Measures DVT/VTE Risk/Contraindication: Risk Factor Score Per Nursin RFS Level Per Nursing on Admit: 3=High RADHA NORMAN DO Jul 17, 2018 09:40
--- NOTE | 2018-07-17 12:00 | Diagnostic Imaging Report ---
EXAM: ABDOMEN COMPLETE ULTRASOUND DATE: July 17, 2018. COMPARISON: CT chest abdomen and pelvis July 17, 2018. INDICATION: 78-year-old female, elevated bilirubin, nausea and vomiting. PROCEDURE: Two-dimensional ultrasound examination of the abdomen is performed. FINDINGS: Liver: The liver is of normal size and echotexture without parenchymal distorting solid or cystic masses. The main portal vein is patent. Bile ducts and gallbladder: There is no pericholecystic fluid, gallbladder wall thickening or gallstones. The gallbladder wall measures 0.2 cm. The common bile duct measures 0.4 cm in diameter. Spleen: The spleen is normal. Right kidney: The right kidney is of normal size and contour with good corticomedullary differentiation. There are no shadowing calculi or cortical deforming solid or cystic masses. No hydronephrosis. The right kidney measures 10.6 cm x 6.3 cm x 4.4 cm. Left kidney: The left kidney is of normal size and contour with good corticomedullary differentiation. There are no shadowing calculi or cortical deforming solid or cystic masses. No hydronephrosis. The left kidney measures 10.5 cm x 5.3 cm x 5.2 cm. Pancreas: Visualized portions of the pancreas are unremarkable. Aorta: The aorta is of normal caliber. Inferior vena cava: The inferior vena cava is of normal caliber. IMPRESSION: Unremarkable complete abdominal ultrasound. Dictated by: Dictated on workstation # [id number]
[2018-07-18] VITALS (7 sets, daily range): BP systolic 132–146; BP diastolic 68–84
[2018-07-18] MEDS: cefTRIAXone 1 GM/NS 50 ML IVPB IV SCH ×2 (04:27)
[2018-07-18] MEDS: POTASSIUM CL 10MEQ/50ML IVPB 50 ML IV SCH (05:41)
[2018-07-18] MEDS: MAGNESIUM 1 GM/100 ML IVPB 100 ML IV SCH (05:42)
[2018-07-18] MEDS: KCL 20 MEQ TAB (K-DUR) PO SCH (05:42)
--- NOTE | 2018-07-18 06:57 | Pulmonary Progress Note ---
Subjective Time Seen by a Provider: 06:57 Subjective/Events-last exam PT is doing better. No complications noted. Sepsis Event Evaluation Height, Weight, BMI Height: 5'2.00" Weight: 85lbs. 0.0oz. [id number]; 15.6 BMI Method:Stated Focused Exam Lactate Level 07/16/18 22:45: Lactic Acid Level 2.92*H 07/17/18 00:50: Lactic Acid Level 2.25*H Exam Exam Vital Signs Date Time Temp Pulse Resp B/P (MAP) Pulse Ox O2 Delivery O2 Flow Rate FiO2 07/18/18 04:00 97.1 85 20 136/75 (95) 95 Room Air 07/18/18 00:00 97.3 80 20 137/77 (97) 97 Room Air 07/17/18 20:00 Room Air 07/17/18 19:55 98.2 86 17 116/79 (91) 97 Room Air 07/17/18 11:45 98.5 77 20 133/82 (99) 98 Room Air 07/17/18 11:45 98 Room Air 07/17/18 11:00 78 8 137/79 (98) 98 Room Air 07/17/18 10:00 72 8 147/93 (111) 98 Room Air 07/17/18 09:00 75 137/73 (94) 98 Room Air 07/17/18 08:00 80 22 136/89 (105) 97 Room Air 07/17/18 08:00 Room Air 07/17/18 07:46 96.0 07/17/18 07:45 80 12 140/84 (102) 97 Room Air 07/17/18 07:30 83 39 136/91 (106) 99 Room Air 07/17/18 07:21 75 07/17/18 07:20 77 40 158/90 (112) 97 Room Air 07/17/18 07:15 77 18 153/92 (112) 98 Room Air I & O 07/18/18 07:00 Intake Total 450 ml Balance 450 ml Height & Weight Height: 5'2.00" Weight: 85lbs. 0.0oz. 38.654728pj; 15.6 BMI Method:Stated General Appearance: No Apparent Distress, WD/WN, Chronically ill, Cachetic HEENT: PERRL/EOMI, Normal ENT Inspection, Pharynx Normal Neck: Full Range of Motion, Normal Inspection, Non Tender, Supple, Carotid Bruit Respiratory: Chest Non Tender, Lungs Clear, Normal Breath Sounds, No Accessory Muscle Use, No Respiratory Distress Cardiovascular: Regular Rate, Rhythm, No Edema, No Gallop, No JVD, No Murmur, Normal Peripheral Pulses Capillary Refill: Less Than 3 Seconds Gastrointestinal: normal bowel sounds, non tender, soft, no organomegaly, no pulsatile mass Extremity: Normal Capillary Refill, Normal Inspection, Normal Range of Motion, Non Tender, No Calf Tenderness, No Pedal Edema Neurologic/Psychiatric: Alert, Oriented x3, No Motor/Sensory Deficits, Depressed Affect Skin: Normal Color, Warm/Dry Lymphatic: No Adenopathy Results Lab Laboratory Tests 07/16/18 22:30 07/17/18 05:29 Assessment/Plan Assessment/Plan N/v wt loss -Ct of abd/pelvis - is negative Weakness Hx of recent lung nodule dx at [facility] -CT of chest- shows no lung nodules or mass. No acute process Elevated bilirubin -abdominal US - is negative Hyponatremia pobably secondary to n/v I am going to sign off please call with any questions or concerns. KAYLA PARKER DO Jul 18, 2018 06:57
[2018-07-18 07:22] LABS: BASOPHILS % (AUTO) 0 % (0-10); EOSINOPHILS # (AUTO) 0.1 10^3/uL (0.0-0.3); EOSINOPHILS % (AUTO) 1 % (0-10); HEMATOCRIT 38 % (35-52); HEMOGLOBIN 13.3 G/DL (11.5-16.0); LYMPHOCYTES # (AUTO) 1.1 X 10^3 (1.0-4.0); LYMPHOCYTES % (AUTO) 12 % (12-44); MEAN CORPUSCULAR HEMOGLOBIN 28 PG (25-34); MEAN CORPUSCULAR HGB CONC 36 G/DL (32-36); MEAN CORPUSCULAR VOLUME 79 FL (80-99); MEAN PLATELET VOLUME 8.2 FL (7.4-10.4); MONOCYTES % (AUTO) 11 % (0-12); NEUTROPHILS # (AUTO) 6.8 X 10^3 (1.8-7.8); NEUTROPHILS % (AUTO) 76 % (42-75); PLATELET COUNT 349 10^3/uL (130-400); RED BLOOD COUNT 4.73 10^6/uL (4.35-5.85); RED CELL DISTRIBUTION WIDTH 14.3 % (10.0-14.5)
--- NOTE | 2018-07-18 07:26 | Diagnostic Imaging Report ---
INDICATION: Dyspnea. COMPARISON: 07/16/2018. DISCUSSION: Single portable upright view of the chest was obtained. Underlying COPD is stable. Antecedent granulomatous disease is stable. No focal consolidation, pleural fluid, or pneumothorax. Normal heart size. No osseous abnormality. IMPRESSION: 1. No acute cardiopulmonary process. Dictated by: Dictated on workstation # [id number]
[2018-07-18 07:41] LABS: BUN/CREATININE RATIO 17; CALCIUM 8.6 MG/DL (8.5-10.1); CARBON DIOXIDE 19 MMOL/L (21-32); CHLORIDE 101 MMOL/L (98-107); CREATININE SERUM 0.53 MG/DL (0.60-1.30); GFR ESTIMATED > 60; GLUCOSE 82 MG/DL (70-105); MAGNESIUM 1.4 MG/DL (1.8-2.4); PHOSPHORUS 2.1 MG/DL (2.3-4.7); POTASSIUM 3.3 MMOL/L (3.6-5.0); SODIUM 130 MMOL/L (135-145)
[2018-07-18] MEDS: NS W/KCL 40 MEQ/L 1,000 ML IV SCH ×2 (07:48→21:41)
[2018-07-18] MEDS: ONDANSETRON 4 MG/2 ML (SDV) Z0FRAN IV PRN ×2 (10:37→19:01)
[2018-07-18] MEDS ORDERED: POTA20TA15 PO (11:51)
[2018-07-18] MEDS ORDERED: SERT50TA9 PO (11:51)
[2018-07-18] MEDS ORDERED: AMIL1TAB PO (11:51)
[2018-07-18] MEDS ORDERED: SODI1TAB16 PO (11:51)
--- NOTE | 2018-07-18 12:51 | Progress Note-Hospitalist ---
Subjective HPI/CC On Admission Date Seen by Provider: Jul 18, 2018 Time Seen by Provider: 12:30 CC: Weakness and unable to tolerate PO fluids HPI: This is a 78-year-old white female patient of Dr. Poon in [place] who presents to the ER with weakness and unable to tolerate oral fluids was found to have elevated lactic acid and a slightly abnormal UA so she was placed in the ICU given aggressive IV fluids and currently is stable. Apparently she left [facility] recently for similar complaints AGAINST MEDICAL ADVICE and she thought they told her she had a pulmonary nodule but CT scan here did not show any abnormality. She has a long-standing history of depression so she will be screened for inpatient [facility] behavioral unit and evaluate the need to admit there to resolve her issues. To note she's never had an endoscopy that she reports she has Crohn's disease and may be 9 years ago she had a capsule endoscopy per . Subjective/Events-last exam Patient continues to not eat. She notes that the food goes down but then sometime she starts coughing and then vomits up the food. In addition sometimes she swallows gets down to the stomach and then she vomited up. She says she just doesn't want to eat that she found her son with a bullet in his head for years ago and she just doesn't want to live anymore. She denies having depression and refuses transfer to a psychiatric unit or to take any medications. She does have a long-standing history of Crohn's. She did have a fall June 06 and sustained a severe hematoma on the left side of her brain and some of this really started after that. I discussed possible hospice with the family and her CODE STATUS will need to be addressed Review of Systems Gastrointestinal: Vomiting Focused Exam Lactate Level 07/16/18 22:45: Lactic Acid Level 2.92*H 07/17/18 00:50: Lactic Acid Level 2.25*H Objective Exam Vital Signs Vital Signs Date Time Temp Pulse Resp B/P (MAP) Pulse Ox O2 Delivery O2 Flow Rate FiO2 07/18/18 11:50 97.3 75 20 140/72 (94) 98 Room Air Capillary Refill : Less Than 3 Seconds General Appearance: Chronically ill Respiratory: Lungs Clear, Normal Breath Sounds, No Accessory Muscle Use, No Respiratory Distress Cardiovascular: Regular Rate, Rhythm, Systolic Murmur (3/6) Gastrointestinal: Normal Bowel Sounds, No Organomegaly, No Pulsatile Mass, Non Tender, Soft Rectal: Deferred Back: Normal Inspection Extremity: Normal Range of Motion, Non Tender, No Pedal Edema Results/Procedures Lab Laboratory Tests 07/18/18 07:16 Patient resulted labs reviewed. Assessment/Plan Assessment and Plan Assess & Plan/Chief Complaint Vomiting and anorexia History of Crohn's no evidence of active disease Depression Possible dementia Choking when eating The patient refuses having a barium swallow or any swallowing status discussed with the family getting an upper endoscopy to look for any evidence of obstruction or ulceration that might be impacting her ability to eat. She refuses to have her depression treated or any intervention. Discussed hospice care with Clinical Quality Measures DVT/VTE Risk/Contraindication: Risk Factor Score Per Nursin RFS Level Per Nursing on Admit: 3=High NORAH BRUSH MD Jul 18, 2018 12:51
--- NOTE | 2018-07-18 13:22 | Diagnostic Imaging Report ---
PROCEDURE: CT head without contrast. TECHNIQUE: Multiple contiguous axial images were obtained through the brain without the use of intravenous contrast. INDICATION: Headache with vomiting, history of head injury. COMPARISON: None. DISCUSSION: Diffuse brain volume loss is likely age related. White matter hypoattenuation is nonspecific though not greater than expected for age related chronic small vessel ischemic disease. No acute intracranial hemorrhage, mass, midline shift, hydrocephalus. The orbits, sinuses, mastoid air cells, and calvarium are unremarkable. IMPRESSION: 1. Senescent changes as described. No acute intracranial abnormality. Dictated by: Dictated on workstation # [id number]
--- NOTE | 2018-07-18 14:38 | Progress Note ---
Subjective Date Seen by a Provider: Jul 18, 2018 Time Seen by a Provider: 09:13 Subjective/Events-last exam Not really having any abdominal pain. Threw up a small amount of food after trying to eat. Minimal oral intake. Family at [facility]. Denies fever sweats chills shortness of breath or chest pain. Focused Exam Lactate Level 07/16/18 22:45: Lactic Acid Level 2.92*H 07/17/18 00:50: Lactic Acid Level 2.25*H Objective Exam Vital Signs Date Time Temp Pulse Resp B/P (MAP) Pulse Ox O2 Delivery O2 Flow Rate FiO2 07/18/18 11:50 97.3 75 20 140/72 (94) 98 Room Air 07/18/18 07:40 98.2 70 20 146/76 (99) 98 Room Air 07/18/18 04:00 97.1 85 20 136/75 (95) 95 Room Air 07/18/18 00:00 97.3 80 20 137/77 (97) 97 Room Air 07/17/18 20:00 Room Air 07/17/18 19:55 98.2 86 17 116/79 (91) 97 Room Air I & O 07/18/18 07:00 Intake Total 450 ml Balance 450 ml Capillary Refill : Less Than 3 Seconds General Appearance: Chronically ill HEENT: PERRL/EOMI, Normal ENT Inspection, Pharynx Normal Neck: Full Range of Motion, Normal Inspection, Non Tender, Supple, Carotid Bruit Respiratory: Lungs Clear, Normal Breath Sounds, No Accessory Muscle Use, No Respiratory Distress Cardiovascular: Regular Rate, Rhythm, Systolic Murmur (3/6) Gastrointestinal: non tender, soft, no organomegaly Extremity: Normal Range of Motion, Non Tender, No Pedal Edema Neurologic/Psychiatric: Alert, Oriented x3, No Motor/Sensory Deficits, Depressed Affect Skin: Normal Color, Warm/Dry Lymphatic: No Adenopathy Results Lab Laboratory Tests 07/18/18 07:16: White Blood Count 9.0, Red Blood Count 4.73, Hemoglobin 13.3, Hematocrit 38, Mean Corpuscular Volume 79L, Mean Corpuscular Hemoglobin 28, Mean Corpuscular Hemoglobin Concent 36, Red Cell Distribution Width 14.3, Platelet Count 349, Mean Platelet Volume 8.2, Neutrophils (%) (Auto) 76H, Lymphocytes (%) (Auto) 12 , Monocytes (%) (Auto) 11, Eosinophils (%) (Auto) 1, Basophils (%) (Auto) 0, Neutrophils # (Auto) 6.8, Lymphocytes # (Auto) 1.1, Monocytes # (Auto) 1.0, Eosinophils # (Auto) 0.1, Basophils # (Auto) 0.0, Sodium Level 130L, Potassium Level 3.3L, Chloride Level 101, Carbon Dioxide Level 19L, Anion Gap 10, Blood Urea Nitrogen 9, Creatinine 0.53L, Estimat Glomerular Filtration Rate > 60, BUN/ Creatinine Ratio 17, Glucose Level 82, Calcium Level 8.6, Phosphorus Level 2.1L , Magnesium Level 1.4L Microbiology 07/16/18 Blood Culture - Preliminary, Resulted No growth 07/17/18 Urine Culture - Preliminary, Resulted Gram Pos Mixed Bacterial Kasey Assessment/Plan Assessment/Plan Assessment/Plan Depression Nausea and Emesis Dementia Malnutrition Hx of Crohns Pt had CT of chest/abd/pelvis which did not show any SubQ emphysema and no acute intra-abdominal process. I Patient refused [facility] Discussed with Dr. Hollis and will arrange EGD to be performed to evaluate for any source of her symptoms [facility] for [facility] Clinical Quality Measures DVT/VTE Risk/Contraindication: Risk Factor Score Per Nursin RFS Level Per Nursing on Admit: 3=High TRINY MAC DO Jul 18, 2018 14:38
[2018-07-19] MEDS: cefTRIAXone 1 GM/NS 50 ML IVPB IV SCH ×2 (03:44)
[2018-07-19 03:50] VITALS: BP 130/74
[2018-07-19 05:44] LABS: BASOPHILS % (AUTO) 0 % (0-10); EOSINOPHILS # (AUTO) 0.1 10^3/uL (0.0-0.3); EOSINOPHILS % (AUTO) 1 % (0-10); HEMATOCRIT 36 % (35-52); HEMOGLOBIN 13.2 G/DL (11.5-16.0); LYMPHOCYTES % (AUTO) 11 % (12-44); MEAN CORPUSCULAR HEMOGLOBIN 28 PG (25-34); MEAN CORPUSCULAR HGB CONC 36 G/DL (32-36); MEAN CORPUSCULAR VOLUME 78 FL (80-99); MEAN PLATELET VOLUME 8.3 FL (7.4-10.4); MONOCYTES # (AUTO) 0.7 X 10^3 (0.0-1.0); MONOCYTES % (AUTO) 9 % (0-12); NEUTROPHILS # (AUTO) 6.7 X 10^3 (1.8-7.8); NEUTROPHILS % (AUTO) 79 % (42-75); PLATELET COUNT 381 10^3/uL (130-400); RED BLOOD COUNT 4.67 10^6/uL (4.35-5.85); RED CELL DISTRIBUTION WIDTH 14.3 % (10.0-14.5); WHITE BLOOD COUNT 8.6 10^3/uL (4.3-11.0)
[2018-07-19 06:08] LABS: BUN/CREATININE RATIO 10; CALCIUM 7.8 MG/DL (8.5-10.1); CARBON DIOXIDE 19 MMOL/L (21-32); CHLORIDE 92 MMOL/L (98-107); GFR ESTIMATED > 60; GLUCOSE 65 MG/DL (70-105); MAGNESIUM 1.1 MG/DL (1.8-2.4); PHOSPHORUS 2.1 MG/DL (2.3-4.7); POTASSIUM 2.9 MMOL/L (3.6-5.0)
[2018-07-19] MEDS: MAGNESIUM 1 GM/100 ML IVPB 100 ML IV SCH ×3 (06:08→11:52)
[2018-07-19] MEDS: POTASSIUM CL 10MEQ/50ML IVPB 50 ML IV SCH (06:08)
[2018-07-19] MEDS: KCL 20 MEQ TAB (K-DUR) PO SCH (06:09)
[2018-07-19 06:10] LABS: SODIUM 125 MMOL/L (135-145)
[2018-07-19 07:25] VITALS: BP 136/68
--- NOTE | 2018-07-19 08:36 | Diagnostic Imaging Report ---
INDICATION: Dyspnea. COMPARISON: 07/18/2018. FINDINGS: There is good aeration of the lungs. Mild interstitial lung disease is present. No consolidated infiltrates have developed. No evidence of pneumothorax or pleural effusion. The heart is not enlarged. There is no evidence of congestive failure. IMPRESSION: Chronic interstitial lung disease with no acute changes. Dictated by: Dictated on workstation # [id number]
[2018-07-19] MEDS ORDERED: MIDAZOLAM 2 MG/2 ML (VERSED) VIAL ONE (08:53)
[2018-07-19] MEDS ORDERED: proPOfol 200 MG/20 ML (DIPRIVAN) VIAL IV ONE (08:53)
[2018-07-19] MEDS ORDERED: LACTATED RINGERS 1,000 ML IV ONE ×2 (09:05→10:30)
--- NOTE | 2018-07-19 10:08 | Progress Note ---
Subjective Date Seen by a Provider: Jul 19, 2018 Time Seen by a Provider: 08:45 Subjective/Events-last exam Still not wanting to eat. Nausea and emesis yesterday. Npo this morning. No new complaints. family at bedside. Focused Exam Lactate Level 07/16/18 22:45: Lactic Acid Level 2.92*H 07/17/18 00:50: Lactic Acid Level 2.25*H Objective Exam Vital Signs Date Time Temp Pulse Resp B/P (MAP) Pulse Ox O2 Delivery O2 Flow Rate FiO2 07/19/18 07:25 97.5 78 20 136/68 (90) 97 Room Air 07/19/18 03:50 98.4 80 20 130/74 (92) 95 Room Air 07/18/18 23:45 97.7 71 20 133/68 (89) 97 Room Air 07/18/18 20:00 97.3 83 18 132/84 (100) 96 Room Air 07/18/18 16:00 97.6 78 16 144/80 (101) 96 Room Air 07/18/18 11:50 97.3 75 20 140/72 (94) 98 Room Air I & O 07/19/18 07:00 Intake Total 1600 ml Output Total 875 ml Balance 725 ml Capillary Refill : Less Than 3 Seconds General Appearance: Chronically ill HEENT: PERRL/EOMI, Normal ENT Inspection, Pharynx Normal Neck: Full Range of Motion, Normal Inspection, Non Tender, Supple, Carotid Bruit Respiratory: Lungs Clear, Normal Breath Sounds, No Accessory Muscle Use, No Respiratory Distress Cardiovascular: Regular Rate, Rhythm Gastrointestinal: non tender, soft, no organomegaly Extremity: Normal Range of Motion, Non Tender, No Pedal Edema Neurologic/Psychiatric: Alert, Oriented x3, No Motor/Sensory Deficits, Depressed Affect Skin: Normal Color, Warm/Dry Lymphatic: No Adenopathy Results Lab Laboratory Tests 07/19/18 05:10: White Blood Count 8.6, Red Blood Count 4.67, Hemoglobin 13.2, Hematocrit 36, Mean Corpuscular Volume 78L, Mean Corpuscular Hemoglobin 28, Mean Corpuscular Hemoglobin Concent 36, Red Cell Distribution Width 14.3, Platelet Count 381, Mean Platelet Volume 8.3, Neutrophils (%) (Auto) 79H, Lymphocytes (%) (Auto) 11L , Monocytes (%) (Auto) 9, Eosinophils (%) (Auto) 1, Basophils (%) (Auto) 0, Neutrophils # (Auto) 6.7, Lymphocytes # (Auto) 1.0, Monocytes # (Auto) 0.7, Eosinophils # (Auto) 0.1, Basophils # (Auto) 0.0, Sodium Level 125*L, Potassium Level 2.9L, Chloride Level 92L, Carbon Dioxide Level 19L, Anion Gap 14, Blood Urea Nitrogen 5L, Creatinine 0.50L, Estimat Glomerular Filtration Rate > 60, BUN /Creatinine Ratio 10, Glucose Level 65L, Calcium Level 7.8L, Phosphorus Level 2.1L, Magnesium Level 1.1L Microbiology 07/16/18 Blood Culture - Preliminary, Resulted No growth 07/17/18 Urine Culture - Preliminary, Resulted Gram Pos Mixed Bacterial Kasey Assessment/Plan Assessment/Plan Assessment/Plan Depression Nausea and Emesis Dementia Malnutrition Hx of Crohns Pt had CT of chest/abd/pelvis which did not show any SubQ emphysema and no acute intra-abdominal process. I Patient refused sr behavioral health Discussed with Dr. Hollis and will arrange EGD to be performed to evaluate for any source of her symptoms NPO EGD this am Clinical Quality Measures DVT/VTE Risk/Contraindication: Risk Factor Score Per Nursin RFS Level Per Nursing on Admit: 3=High TRINY MAC DO Jul 19, 2018 10:08
--- NOTE | 2018-07-19 10:09 | Progress Note-Post Operative ---
Post-Operative Progess Note Surgeon (s)/Gyroscopic Instrument Mechanic (s) Surgeon TRINY MAC DO Gyroscopic Instrument Mechanic: na Pre-Operative Diagnosis nausea and emesis Post-Operative Diagnosis gastritis, small hiatal hernia Procedure & Operative Findings Date of Procedure 07/19/18 Procedure Performed/Findings egd c biopsies Anesthesia Type per reporting specialist Estimated Blood Loss Estimated blood loss (mL): none Specimens/Packing Specimens Removed antrum, GE TRINY MAC DO Jul 19, 2018 10:09
[2018-07-19] MEDS: PANTOPRAZOLE 40 MG (PROTONIX) TAB PO SCH (10:47)
[2018-07-19] MEDS: NS W/KCL 40 MEQ/L 1,000 ML IV SCH (10:48)
[2018-07-19 11:19] VITALS: BP 140/83
--- NOTE | 2018-07-19 11:23 | Progress Note-Hospitalist ---
Subjective HPI/CC On Admission Date Seen by Provider: Jul 19, 2018 Time Seen by Provider: 11:15 CC: Weakness and unable to tolerate PO fluids HPI: This is a 78-year-old white female patient of Dr. Poon in [place] who presents to the ER with weakness and unable to tolerate oral fluids was found to have elevated lactic acid and a slightly abnormal UA so she was placed in the ICU given aggressive IV fluids and currently is stable. Apparently she left [facility] recently for similar complaints AGAINST MEDICAL ADVICE and she thought they told her she had a pulmonary nodule but CT scan here did not show any abnormality. She has a long-standing history of depression so she will be screened for inpatient [facility] behavioral unit and evaluate the need to admit there to resolve her issues. To note she's never had an endoscopy that she reports she has Crohn's disease and may be 9 years ago she had a capsule endoscopy per . Subjective/Events-last exam patient continues to not eat. She continues to expresses the desire to because of her grieving for her son committed suicide. We discussed hospice care consult upon discharge tomorrow she notes that that's for dying people and I discussed with her at length that in fact if she continues this trajectory that she will . Dr. Guillermo completed an EGD that showed some mild gastritis and she has been started on Protonix. CODE STATUS was discussed at length with her and her family and she does desire a DO NOT RESUSCITATE status Review of Systems Gastrointestinal: Nausea Neurological: Weakness Focused Exam Lactate Level 07/16/18 22:45: Lactic Acid Level 2.92*H 07/17/18 00:50: Lactic Acid Level 2.25*H Objective Exam Vital Signs Vital Signs Date Time Temp Pulse Resp B/P (MAP) Pulse Ox O2 Delivery O2 Flow Rate FiO2 07/19/18 07:25 97.5 78 20 136/68 (90) 97 Room Air Capillary Refill : Less Than 3 Seconds General Appearance: Chronically ill Neck: Normal Inspection, Non Tender, Supple Respiratory: Lungs Clear, Normal Breath Sounds, No Accessory Muscle Use, No Respiratory Distress Cardiovascular: Regular Rate, Rhythm, No Edema, No Gallop, Systolic Murmur (2-3 /6) Gastrointestinal: Normal Bowel Sounds, No Organomegaly, Non Tender, Soft Rectal: Deferred Back: Normal Inspection, No CVA Tenderness Extremity: Normal Capillary Refill, Normal Inspection, Normal Range of Motion, Non Tender Skin: Pallor Lymphatic: No Adenopathy Results/Procedures Lab Laboratory Tests 07/19/18 05:10 Patient resulted labs reviewed. Imaging: Reviewed Imaging Report Assessment/Plan Assessment and Plan Assess & Plan/Chief Complaint Vomiting and anorexia-mild gastritis on EGD this appears to be an active volition secondary to depression the patient adamantly refuses feeding tube or counseling History of Crohn's no evidence of active disease Depression Possible dementia-CT head shows evidence of senescence Choking when eating-refuses swallowing studies hyponatremia Hypokalemia-being replaced Hypomagnesemia-replacing Will check urine electrolytes The patient refuses having a barium swallow or any swallowing status discussed with the family getting an upper endoscopy to look for any evidence of obstruction or ulceration that might be impacting her ability to eat. She refuses to have her depression treated or any intervention. Discussed hospice care with family and patient. Changed to DO NOT RESUSCITATE status Clinical Quality Measures DVT/VTE Risk/Contraindication: Risk Factor Score Per Nursin RFS Level Per Nursing on Admit: 3=High NORAH BRUSH MD Jul 19, 2018 11:23
[2018-07-19] MEDS: ONDANSETRON 4 MG/2 ML (SDV) Z0FRAN IV PRN ×2 (12:39→21:28)
--- NOTE | 2018-07-19 14:28 | Anesthesia-General Post-Op ---
MAC Patient Condition Mental Status/LOC: Same as Preop Cardiovascular: Satisfactory Nausea/Vomiting: Absent Respiratory: Satisfactory Pain: Controlled Complications: Absent Post Op Complications Complications None Follow Up Care/Instructions Patient Instructions None needed. Anesthesiology Discharge Order Discharge Order Patient is doing well, no complaints, stable vital signs, no apparent adverse anesthesia problems. No complications reported per nursing. SAMANTHA HUYNH CRNA Jul 19, 2018 14:28
[2018-07-19 16:00] VITALS: BP 144/84
[2018-07-19 20:00] VITALS: BP 124/87
--- NOTE | 2018-07-19 22:03 | OPERATIVE REPORT ---
DATE OF SERVICE: 07/19/2018 PREOPERATIVE DIAGNOSIS: Nausea and vomiting. POSTOPERATIVE DIAGNOSES: Gastritis, small hiatal hernia. PROCEDURE: EGD with biopsy. SURGEON: Triny Guillermo DO. ANESTHESIA: Per TEXTILE DESIGNER. ESTIMATED BLOOD LOSS: None. COMPLICATIONS: None. INDICATIONS: The patient is a 78-year-old female who has been having nausea and vomiting and inability to eat. It was asked that an EGD be performed for further evaluation. She was explained risks and benefits and wished to proceed with procedure. Consent was signed in the chart. PROCEDURE: The patient was taken to the endoscopy suite, placed in left lateral recumbent position. Timeout was performed. Scope was inserted in the mouth, down the esophagus, stomach and into the duodenum without difficulty. There were no polyps, masses or ulcerations within the duodenum. Scope was then slowly retracted back into the stomach, which had erythematous changes. Biopsy of the antrum was obtained. Scope was then retroflexed noting a small hiatal hernia. No polyps, masses or ulcerations, just erythematous changes. Scope was returned to its normal position, slowly withdrawn to the distal esophagus, which had erythematous changes. Biopsy was obtained. Scope was then slowly retracted back until completely removed, noting no polyps, masses or ulcerations. The patient tolerated procedure well without any complications. She will be started on Protonix 40 mg daily. We will see how her symptoms improve. The patient to follow up on an outpatient basis. Job ID: [id number] DocumentID: [id number] Dictated Date: 07/19/2018 10:40:57 Bone Char Kiln Tender Date: 07/19/2018 14:56:54 Dictated By: TRINY GUILLERMO DO
[2018-07-20] VITALS: BP 133/76
[2018-07-20] MEDS: NS W/KCL 40 MEQ/L 1,000 ML IV SCH ×3 (01:12→22:03)
[2018-07-20 03:21] VITALS: BP 133/76
[2018-07-20] MEDS: cefTRIAXone 1 GM/NS 50 ML IVPB IV SCH ×2 (04:27)
[2018-07-20 05:25] LABS: BASOPHILS % (AUTO) 0 % (0-10); EOSINOPHILS # (AUTO) 0.1 10^3/uL (0.0-0.3); EOSINOPHILS % (AUTO) 1 % (0-10); HEMATOCRIT 37 % (35-52); HEMOGLOBIN 13.1 G/DL (11.5-16.0); LYMPHOCYTES # (AUTO) 0.7 X 10^3 (1.0-4.0); LYMPHOCYTES % (AUTO) 9 % (12-44); MEAN CORPUSCULAR HEMOGLOBIN 28 PG (25-34); MEAN CORPUSCULAR HGB CONC 36 G/DL (32-36); MEAN CORPUSCULAR VOLUME 78 FL (80-99); MEAN PLATELET VOLUME 8.3 FL (7.4-10.4); MONOCYTES # (AUTO) 0.7 X 10^3 (0.0-1.0); MONOCYTES % (AUTO) 9 % (0-12); NEUTROPHILS # (AUTO) 6.6 X 10^3 (1.8-7.8); NEUTROPHILS % (AUTO) 81 % (42-75); PLATELET COUNT 321 10^3/uL (130-400); RED BLOOD COUNT 4.74 10^6/uL (4.35-5.85); RED CELL DISTRIBUTION WIDTH 13.9 % (10.0-14.5); WHITE BLOOD COUNT 8.2 10^3/uL (4.3-11.0)
[2018-07-20 05:43] LABS: BUN/CREATININE RATIO 7; CALCIUM 8.2 MG/DL (8.5-10.1); CARBON DIOXIDE 19 MMOL/L (21-32); CHLORIDE 91 MMOL/L (98-107); CREATININE SERUM 0.54 MG/DL (0.60-1.30); GFR ESTIMATED > 60; GLUCOSE 72 MG/DL (70-105); MAGNESIUM 1.7 MG/DL (1.8-2.4); POTASSIUM 2.7 MMOL/L (3.6-5.0)
[2018-07-20 05:48] LABS: SODIUM 125 MMOL/L (135-145)
[2018-07-20] MEDS: PANTOPRAZOLE 40 MG (PROTONIX) TAB PO SCH (06:20)
--- NOTE | 2018-07-20 07:35 | Diagnostic Imaging Report ---
INDICATION: Shortness of breath. COMPARISON: 07/19/2018. FINDINGS: Single view of the chest demonstrates clear lungs bilaterally. The heart is normal. There is no pneumothorax. Osseous structures normal. IMPRESSION: Negative chest. Dictated by: Dictated on workstation # [id number]
[2018-07-20 08:00] VITALS: BP 127/82
[2018-07-20] MEDS ORDERED: SODI1TAB16 PO (09:55)
[2018-07-20] MEDS ORDERED: MECL-106 PO (09:56)
--- NOTE | 2018-07-20 11:19 | Progress Note-Hospitalist ---
Subjective HPI/CC On Admission Date Seen by Provider: Jul 20, 2018 Time Seen by Provider: 11:04 CC: Weakness and unable to tolerate PO fluids HPI: This is a 78-year-old white female patient of Dr. Poon in [place] who presents to the ER with weakness and unable to tolerate oral fluids was found to have elevated lactic acid and a slightly abnormal UA so she was placed in the ICU given aggressive IV fluids and currently is stable. Apparently she left [facility] recently for similar complaints AGAINST MEDICAL ADVICE and she thought they told her she had a pulmonary nodule but CT scan here did not show any abnormality. She has a long-standing history of depression so she will be screened for inpatient [facility] behavioral unit and evaluate the need to admit there to resolve her issues. To note she's never had an endoscopy that she reports she has Crohn's disease and may be 9 years ago she had a capsule endoscopy per . Subjective/Events-last exam Pt is laying in bed with no complaints. States still not feeling like eating. Discussed options for continued care. She states she would just like to be made comfortable and go home. Offered hospice but she declined as she thinks her can provide that level of care and doesn't want anyone in her home. questioned about her anorexia and possible feeding tube. He attempted to talk patient in to placement of feeding tube. I showed patient and family a picture of a PEG tube and explained the procedure to place it. Patient refused adamantly and after explanation does not feel like he would be able to care for it. Offered Surgery consult to continue discussion but they declined. Offered hospice/palliative care consult as well but they declined as well. Daughter requested information for hospice/palliative care RN in case they discharge and decide to enroll later. Will provide info. Objective Exam Vital Signs Vital Signs Date Time Temp Pulse Resp B/P (MAP) Pulse Ox O2 Delivery O2 Flow Rate FiO2 07/20/18 08:00 98.1 80 16 127/82 (97) 98 Room Air Capillary Refill : Less Than 3 Seconds General Appearance: Chronically ill, Cachetic Respiratory: Lungs Clear, No Respiratory Distress Cardiovascular: Regular Rate, Rhythm, No Murmur Gastrointestinal: Normal Bowel Sounds, Non Tender, Soft Neurologic/Psychiatric: Alert, Oriented x3 Results/Procedures Lab Laboratory Tests 07/20/18 05:08 Patient resulted labs reviewed. Imaging: Reviewed Imaging Report Assessment/Plan Assessment and Plan Assess & Plan/Chief Complaint Vomiting and anorexia-mild gastritis on EGD. Anorexia likely secondary to depression. the patient adamantly refuses feeding tube, treatment, [facility] evaluation, or counseling History of Crohn's no evidence of active disease Depression- as above Choking when eating-refuses swallowing studies Hyponatremia- Continue IVF, Na remains 125 Hypokalemia-being replaced Hypomagnesemia-replacing Discharge planning- patient is requesting DC home tomorrow regardless of her labs and just making her comfortable during her time left but also adamantly declines hospice, discussed concerns about safety should she get worse and she still insists on DC home tomorrow Diagnosis/Problems Diagnosis/Problems (1) Hyponatremia Status: Acute (2) Acute hypokalemia Status: Acute (3) Severe dehydration Status: Acute (4) Severe protein-calorie malnutrition (Willis: less than 60% of standard weight ) Status: Acute (5) Urinary tract infection Status: Acute Qualifiers: Urinary tract infection type: acute cystitis Hematuria presence: without hematuria Qualified Codes: N30.00 - Acute cystitis without hematuria Clinical Quality Measures DVT/VTE Risk/Contraindication: Risk Factor Score Per Nursin RFS Level Per Nursing on Admit: 3=High TANIA AC MD Jul 20, 2018 11:19
[2018-07-20] MEDS ORDERED: LORazepam ORAL CONCENTRATE 2 MG/ML 30 ML (ATIVAN) PO PRN (11:30)
[2018-07-20] MEDS: MAGNESIUM 1 GM/100 ML IVPB 100 ML IV SCH ×2 (14:06→15:23)
[2018-07-20 16:00] VITALS: BP 134/78
[2018-07-21] VITALS: BP 139/82
[2018-07-21] MEDS: ONDANSETRON 4 MG/2 ML (SDV) Z0FRAN IV PRN (01:33)
[2018-07-21] MEDS: cefTRIAXone 1 GM/NS 50 ML IVPB IV SCH ×2 (04:28)
[2018-07-21 05:57] LABS: BUN/CREATININE RATIO 4; CALCIUM 7.5 MG/DL (8.5-10.1); CARBON DIOXIDE 17 MMOL/L (21-32); CHLORIDE 94 MMOL/L (98-107); CREATININE SERUM 0.49 MG/DL (0.60-1.30); GFR ESTIMATED > 60; GLUCOSE 76 MG/DL (70-105); POTASSIUM 2.6 MMOL/L (3.6-5.0); SODIUM 127 MMOL/L (135-145)
[2018-07-21] MEDS: PANTOPRAZOLE 40 MG (PROTONIX) TAB PO SCH (06:39)
[2018-07-21] MEDS: NS W/KCL 40 MEQ/L 1,000 ML IV SCH (06:40)
[2018-07-21 08:16] VITALS: BP 142/74
[2018-07-21] MEDS ORDERED: PANT40TA3 PO (09:05)
[2018-07-21] MEDS ORDERED: ONDN4T PO (09:05)
[2018-07-21] MEDS ORDERED: PROM25TA14 PO (09:05)
--- NOTE | 2018-07-21 09:17 | Diagnostic Imaging Report ---
INDICATION: Severe dehydration, urinary tract infection, dyspnea. TECHNIQUE: Single view chest 3:57 AM. CORRELATION STUDY: 07/20/2018 FINDINGS: Heart size and vasculature stable. Density of the right lung apex paramediastinal region appears generally stable. There is stable, chronic-appearing changes about the lung parenchyma. No definitive infiltrate. Leftward curvature of the thoracic spine. IMPRESSION: 1. Generally stable appearance about the chest with chronic change about the lung parenchyma. 2. Density of the right paramediastinal region may very well reflect ectasia and prominent vasculature. Adenopathy and/or mass lesion considered less likely but not excluded. Dictated by: Dictated on workstation # [id number]
--- NOTE | 2018-07-21 09:19 | Discharge Summary-Hospitalist ---
Diagnosis/Chief Complaint Date of Admission Jul 17, 2018 at 02:10 Date of Discharge Discharge Date: Jul 21, 2018 Admission Diagnosis Assessment: Profound dehydration Elevated lactic acid Slightly abnormal urinalysis placed on Rocephin empirically Long-standing depression Significant weight loss History of lung nodule per patient but none on CT scan here Discharge Diagnosis (1) Hyponatremia Status: Acute (2) Acute hypokalemia Status: Acute (3) Severe dehydration Status: Acute (4) Severe protein-calorie malnutrition (Willis: less than 60% of standard weight ) Status: Acute (5) Urinary tract infection Status: Acute Discharge Summary Procedures/Consulations Surgery Pulmonology Discharge Physical Exam Allergies: Coded Allergies: No Known Drug Allergies (Unverified , 09/17/10) Vitals & I&Os Vital Signs Date Time Temp Pulse Resp B/P (MAP) Pulse Ox O2 Delivery O2 Flow Rate FiO2 07/21/18 10:50 07/21/18 08:45 Room Air 07/21/18 08:16 98.0 76 16 98 General Appearance: Chronically ill, Cachetic, Thin Respiratory: Lungs Clear, No Respiratory Distress Cardiovascular: Regular Rate, Rhythm, No Murmur Hospital Course Pt was admitted due to dehydration and inability to maintain oral hydration. She was found to be hyponatremic and hypokalemic and was fluid resuscitated. Her electrolytes remained significant abnormal but discussions where had with her regarding poor oral intake. It appears to be due to depression but she declines any and all treatment options for depression. Attempts were made to have her screened for [facility] admission but she declined screening. She appeared to capacity and declined any thoughts of self harm. Multiple physicians including myself discussed options for treatment and risks of further dehydration and she understood these risks and stating she was comfortable with "whatever God has planned" and just wants to be home and be made comfortable for whatever time she has left. Daughter and where at bedside during these discussions and hospice was offered but patient declined. We also discussed options for assistance with nutrition which she also declined. Ultimately family was comfortable with plan to take her home and focus on comfort measures and palliative care was consulted to assist if any post discharge needs came about. I called and discussed this hospitalization and her desires with her PCP who will facilitate close follow up with patient. Labs (last 24 hrs) Microbiology 07/16/18 Blood Culture - Final, Complete No growth 07/17/18 Urine Culture - Final, Complete Enterococcus faecalis See Report Patient resulted labs reviewed. Pending Labs Imaging: Reviewed Imaging Report Discussion & Recommendations Discharge Planning: >30 minutes discharge planning Discharge Home Medications: Active Scripts Active Promethazine Tablet (Promethazine HCl) 25 Mg Tablet 25 Mg PO Q6H PRN Pantoprazole Sodium 40 Mg Tablet.dr 40 Mg PO DAILY@0700 Zofran (Ondansetron HCl) 4 Mg Tab 4 Mg PO Q4H PRN Reported Meclizine HCl 25 Mg Tablet 25 Mg PO PRN Thermotabs Tablet (Sodium Cl/Potassium Chloride) 1 Each Tablet 1 Each PO BID Potassium Chloride 20 Meq Tab.er.prt 20 Meq PO DAILY Sertraline HCl 50 Mg Tablet 50 Mg PO HS Instructions to patient/family Please see electronic discharge instructions given to patient. Clinical Quality Measures DVT/VTE Risk/Contraindication: Risk Factor Score Per Nursin RFS Level Per Nursing on Admit: 3=High Problem Qualifiers (1) Urinary tract infection: Urinary tract infection type: acute cystitis Hematuria presence: without hematuria Qualified Codes: N30.00 - Acute cystitis without hematuria TANIA AC MD Jul 21, 2018 09:19
== END 2018-07-21 10:50 | disposition home or self-care (01) | DRG 640 ==
LOC: EDUNIT# 22:22 → ER 22:23 → ICU 07-17 02:10 → 4TH 07-17 11:45
PROVIDERS: ADMIT Internal Medicine; ATTEND Family Medicine
PROC: 0DB78ZX Excision of Stomach, Pylorus, Via Natural or Artificial Opening Endoscopic, Diagnostic (ICD-10-PCS; principal; 2018-07-19 09:00)
DX: E86.0 Dehydration (principal); E43 Unspecified severe protein-calorie malnutrition; R64 Cachexia; N30.00 Acute cystitis without hematuria; F32.9 Major depressive disorder, single episode, unspecified; K29.70 Gastritis, unspecified, without bleeding; K44.9 Diaphragmatic hernia without obstruction or gangrene; E87.1 Hypo-osmolality and hyponatremia; Z66 Do not resuscitate; R09.89 Other specified symptoms and signs involving the circulatory and respiratory systems; I10 Essential (primary) hypertension; E87.6 Hypokalemia; E83.42 Hypomagnesemia; R74.0 Nonspecific elevation of levels of transaminase and lactic acid dehydrogenase [LDH]; F03.90 Unspecified dementia, unspecified severity, without behavioral disturbance, psychotic disturbance, mood disturbance, and anxiety; Z87.19 Personal history of other diseases of the digestive system
CPT/HCPCS: 36415; 51701; 70450; 71045; 71260; 74177; 76700; 80048; 80053; 81000; 82150; 82962; 83605; 83690; 83735; 84100; 84484; 85025; 85610; 85730; 87040; 87077; 87088; 87186; 88305; 93005; 96361; 96365; 96375